=== PATIENT | female | born 1985 | race African-American/Black ===

== ENCOUNTER 2017-01-08 08:30 | Emergency (ER) | payer OTHER ==
[2017-01-08 08:35] VITALS: BP 127/82; PULSE 97; TEMP 98.1; BMI 36.0
[2017-01-08] MEDS ORDERED: MAG HYDROX/AL HYDROX/SIMETH 30 ML UNIT-DOSE CUP PO ONE (09:30)
[2017-01-08] MEDS ORDERED: LIDOCAINE VISCOUS 2% ORAL/TOP 20 ML UNIT-DOSE CUP MM ONE (09:31)
--- NOTE | 2017-01-08 09:35 | PDOC ---
History of Present Illness - General Chief Complaint: Cold Symptoms Stated Complaint: COUGH, UPPER TORSO DISCOMFORT Time Seen by Provider: 01/08/17 08:54 History Source: Patient Exam Limitations: No Limitations - History of Present Illness Initial Comments: 01/08/17 09:43 My chief complaint: Mid chest discomfort with eating or drinking for last 3 days History of present illness: Patient is a 31-year-old female with asthma and anemia here today complaining of mid chest discomfort only with eating or drinking for last 3 days. Patient denies any sore throat, nasal congestion, fever, cough, nausea, vomiting, or any shortness of breath or difficulty swallowing. She reports that she ate a hot cinnamon bun 3 days ago and that is when her symptoms started. Patient denies any chance of had a test 3 days ago and has not been sexually active since. 01/08/17 20:00 Timing/Duration: intermittent Severity: moderate Associated Symptoms: reports: chest pain (mid with eating or drinking ), other ( mid chest discomfort with eating, drinking ) Past History - Past Medical History Allergies/Adverse Reactions: Allergies Allergy/AdvReac Type Severity Reaction Status Date / Time shellfish derived Allergy Mild Itching Verified 01/08/17 08:34 Home Medications: Ambulatory Orders Mag Hydrox/Al Hydrox/Simeth [Maalox Advanced Suspension] 30 ml PO Q6H PRN #8 oz MDD 4 01/08/17 Omeprazole 20 mg PO DAILY #10 capsule. 01/08/17 Anemia: Yes Asthma: Yes Cancer: No Cardiac Disorders: No Diabetes: No HTN: No Seizures: No Thyroid Disease: No - Reproductive History (#): 4 Para: 3 Therapeutic (s) & number: No Spontaneous : 0 - Immunization History Immunization Up to Date: Yes - Psycho/Social/Smoking Cessation Hx Anxiety: No Suicidal Ideation: No Smoking History: Never smoked Have you smoked in the past 12 months: No Information on smoking cessation initiated: No Hx Alcohol Use: No Drug/Substance Use Hx: No Substance Use Type: None Hx Substance Use Treatment: No Review of Systems - Review of Systems Able to Perform ROS?: Yes Constitutional: No: Symptoms Reported HEENTM: No: Symptoms Reported Respiratory: No: Symptoms reported Cardiac (ROS): No: Symptoms Reported ABD/GI: No: Symptoms Reported : No: Symptoms Reported Musculoskeletal: No: Symptoms Reported Integumentary: No: Symptoms Reported Neurological: No: Symptoms reported *Physical Exam - Vital Signs Last Vital Signs Temp Pulse Resp BP Pulse Ox 98.1 F 97 H 18 127/82 100 01/08/17 08:32 01/08/17 08:32 01/08/17 08:32 01/08/17 08:32 01/08/17 08:32 - Physical Exam General Appearance: Yes: Appropriately Dressed HEENT: positive: Normal ENT Inspection Neck: negative: Lymphadenopathy (R), Lymphadenopathy (L) Respiratory/Chest: positive: Lungs Clear, Normal Breath Sounds. negative: Chest Tender, Respiratory Distress Cardiovascular: positive: Regular Rhythm, Regular Rate, S1, S2 Integumentary: positive: Normal Color Neurologic: positive: Alert, Normal Response, Responsive Heart Score/ECG Review - ECG Impressions Comment:: 01/08/17 10:[address] Clark Medical Decision Making - Medical Decision Making 01/08/17 09:45 Patient is a 31-year-old female with no significant medical problems here today complaining of mid chest discomfort only with eating or drinking for last 3 days. Patient denies any sore throat, nasal congestion, fever, cough, nausea, vomiting, or any shortness of breath or difficulty swallowing. She reports that she ate a hot cinnamon bun 3 days ago and that is when her symptoms started. Patient denies any chance of had a test 3 days ago and has not been sexually active since. Mid chest discomfort with eating or drinking since eating hot cinnamon bun esophagitis due to hot food Plan: Lidocaine viscous 2% 10 mL gargle now Maalox 30 ml now than every 6 hrs prn EKG done reviewed by Dr. Clark NSR omeprazole 20 mg daily 01/08/17 09:45 01/08/17 10:19 01/08/17 20:05 *DC/Admit/Observation/Transfer Diagnosis at time of Disposition: Esophagitis - Discharge Dispostion Disposition: HOME Condition at time of disposition: Stable - Prescriptions Prescriptions: Mag Hydrox/Al Hydrox/Simeth [Maalox Advanced Suspension] 30 ml PO Q6H PRN #8 oz MDD 4 PRN Reason: Dyspepsia Omeprazole 20 mg PO DAILY #10 capsule.dr - Patient Instructions Additional Instructions: Avoid Any very hot foods or liquids or extremely cold liquids or foods Return to emergency room if symptoms worsen follow-up with your primary care provider within the next few days Patient voiced understanding of discharge instructions and all questions were answered
[2017-01-08] MEDS ORDERED: MAG HYDROX/AL HYDROX/SIMETH 30 ML UNIT-DOSE CUP ONE (09:48)
--- NOTE | 2017-01-08 21:02 | EKG ---
Test Reason : Blood Pressure : / mmHG Vent. Rate : 091 BPM Atrial Rate : 091 BPM P-R Int : 150 ms QRS Dur : 072 ms QT Int : 360 ms P-R-T Axes : 054 044 033 degrees QTc Int : 442 ms NORMAL SINUS RHYTHM NORMAL ECG NO PREVIOUS ECGS AVAILABLE Confirmed by ARNULFO SINGH MD ([id number]) on 01/08/2017 9:02:38 PM Referred By: Confirmed By:ARNULFO SINGH MD
== END 2017-01-08 10:28 | disposition home or self-care (01) ==
LOC: JERFT 08:30
DX: K20.8 Other esophagitis (principal); J45.909 Unspecified asthma, uncomplicated; D64.9 Anemia, unspecified
CPT/HCPCS: 93005; 93010; 99281-25

== ENCOUNTER 2017-02-23 19:42 | Emergency (ER) | payer OTHER ==
[2017-02-23 19:47] VITALS: BMI 36.0
[2017-02-23 22:43] VITALS: BP 113/68; PULSE 79; TEMP 98.3
== END 2017-02-24 00:31 | disposition left against medical advice (07) ==
LOC: JER 19:42
DX: Z53.21 Procedure and treatment not carried out due to patient leaving prior to being seen by health care provider (principal)
CPT/HCPCS: 99281-25

== ENCOUNTER 2017-02-24 08:54 | Emergency (ER) | payer OTHER ==
[2017-02-24 08:59] VITALS: BP 113/56; PULSE 97; TEMP 98.7; BMI 37.2
--- NOTE | 2017-02-24 09:48 | PDOC ---
History of Present Illness - General History Source: Patient - History of Present Illness Timing/Duration: reports: other <Miriam LillyMeghanaRoz - Last Filed: 02/24/17 11:38> <Glen Segundo - Last Filed: 03/01/17 18:40> - General Chief Complaint: Pain, Acute Stated Complaint: CRAMPING () Time Seen by Provider: 02/24/17 09:21 Past History - Past Medical History Anemia: Yes Asthma: Yes Cancer: No Cardiac Disorders: No Diabetes: No HTN: No Seizures: No Thyroid Disease: No - Reproductive History (#): 4 Para: 3 Therapeutic (s) & number: No Spontaneous : 0 - Immunization History Immunization Up to Date: Yes - Psycho/Social/Smoking Cessation Hx Anxiety: No Suicidal Ideation: No Smoking History: Never smoked Have you smoked in the past 12 months: No Hx Alcohol Use: No Drug/Substance Use Hx: No Substance Use Type: None Hx Substance Use Treatment: No <MemphisMiriamLibia - Last Filed: 02/24/17 11:38> <Glen Segundo - Last Filed: 03/01/17 18:40> - Past Medical History Allergies/Adverse Reactions: Allergies Allergy/AdvReac Type Severity Reaction Status Date / Time shellfish derived Allergy Mild Itching Verified 02/24/17 08:59 Home Medications: Ambulatory Orders Nitrofurantoin Monohyd/M-Cryst [Macrobid -] 100 mg PO BID #14 capsule 02/24/17 Review of Systems - Review of Systems Constitutional: No: Chills, Fever ABD/GI: Yes: Nausea, Vomiting, Abdominal cramping : No: Dysuria Musculoskeletal: No: Back Pain <Miriam LillyMeghanaRoz - Last Filed: 02/24/17 11:38> *Physical Exam - Vital Signs Last Vital Signs Temp Pulse Resp BP Pulse Ox 98.7 F 97 H 16 113/56 96 02/24/17 08:56 02/24/17 08:56 02/24/17 08:56 02/24/17 08:56 02/24/17 08:56 - Physical Exam General Appearance: Yes: Appropriately Dressed. No: Apparent Distress HEENT: positive: Normal Voice Neck: positive: Supple Respiratory/Chest: negative: Respiratory Distress Female Pelvic Exam: positive: normal external exam, cervical os closed, discharge (mod amount of milky white discharge), vaginal bleeding. negative: normal adnexa Gastrointestinal/Abdominal: positive: Tender (to mid suprapubic, NT over appy), Soft Musculoskeletal: negative: CVA Tenderness Integumentary: positive: Dry, Warm Neurologic: positive: Fully Oriented, Alert, Normal Mood/Affect <MaxxMiriamLibia - Last Filed: 02/24/17 11:38> - Vital Signs Last Vital Signs Temp Pulse Resp BP Pulse Ox 98.7 F 97 H 16 113/56 96 02/24/17 08:56 02/24/17 08:56 02/24/17 08:56 02/24/17 08:56 02/24/17 08:56 <Glen Segundo - Last Filed: 03/01/17 18:40> Heart Score/ECG Review - History History: Slightly suspicious <MaxxAdithya - Last Filed: 02/24/17 11:38> ED Treatment Course - RADIOLOGY Radiology Studies Ordered: Category Date Time Status <14WKS US [US] Stat Ultrasound 02/24/17 09:21 Ordered <MaxxAdithya - Last Filed: 02/24/17 11:38> Medical Decision Making - Medical Decision Making 02/24/17 09:43 (s/p elec ab and 1 spon ab), currently on OCPs w/ subsequent irregular menses, had +home preg test 1 week ago but did not believe test so continued to take her control but 2 days ago began having vaginal bleeding w/ clots and lower abd cramping w/ n/v that feels very different from her usual menses so decided to come to ED yesterday but left because the wait to be seen was too long per pt. No back pain, dysuria, f/c. See exam 1st trimester bleed w/ abd pain R/o ectopic vs spon AB vs vag bleed in normal preg On OCPs w/ irreg menses Stable w/ +ttp to mid suprapubic area and unremarkable pelvic -beta -T&S -pelvic US 02/24/17 09:59 02/24/17 10:01 02/24/17 11:38 +IUP @5 weeks on US, no activity documented. Beta > 4K. RH +, +uti on labs , ucx pending. Will tx. Pt to f/u with OB and stop taking OCP. Discharged in stable condition 02/24/17 11:41 02/24/17 11:41 <Adithya Lilly - Last Filed: 02/24/17 11:38> - Medical Decision Making 03/01/17 18:40 The patient was seen and evaluated in conjunction with BETZAIDA Lilly under my direct supervision, ancillary studies were reviewed. I agree with the plan as outlined by BETZAIDA Lilly . <Glen Segundo - Last Filed: 03/01/17 18:40> *DC/Admit/Observation/Transfer <Adithya Lilly - Last Filed: 02/24/17 11:38> <Glen Segundo - Last Filed: 03/01/17 18:40> Diagnosis at time of Disposition: Threatened Urinary tract infection Qualifiers: Urinary tract infection type: acute cystitis Hematuria presence: without hematuria Qualified Code(s): N30.00 - Acute cystitis without hematuria - Discharge Dispostion Disposition: HOME Condition at time of disposition: Good - Prescriptions Prescriptions: Nitrofurantoin Monohyd/M-Cryst [Macrobid -] 100 mg PO BID #14 capsule - Referrals Referrals: Evangelist Calzada [Primary Care Provider] - - Patient Instructions Printed Discharge Instructions: DI for Threatened , Urinary Tract Infection Additional Instructions: Take antibiotics as directed . Please stop taking your control and follow up with your OB
[2017-02-24 09:56] LABS: URINE APPEARANCE SLCLOUDY; URINE BILIRUBIN NEGATIVE (NEGATIVE); URINE BLOOD NEGATIVE (NEGATIVE); URINE COLOR DKYELLOW; URINE GLUCOSE (UA) NEGATIVE (NEGATIVE); URINE KETONE 1+ (NEGATIVE); URINE NITRITE POSITIVE (NEGATIVE); URINE UROBILINOGEN NEGATIVE E.U./dl (0.2-1.0)
[2017-02-24 11:08] LABS: URINE LEUK ESTERASE TRACE (NEGATIVE); URINE PROTEIN 1+ (NEGATIVE)
[2017-02-24 11:19] LABS: URINE BACTERIA MANY /hpf (NONE SEEN); URINE MUCUS MANY; URINE RBC 1 /hpf (0-3); URINE WBC 7 /hpf (3-5)
== END 2017-02-24 12:05 | disposition home or self-care (01) ==
LOC: JER 08:54
DX: Z3A.01 Less than 8 weeks gestation of pregnancy (principal); O23.11 Infections of bladder in pregnancy, first trimester; N30.00 Acute cystitis without hematuria
CPT/HCPCS: 36415; 76801-TC; 81003; 81015; 84702; 84703; 86850; 86900; 86901; 99281-25

== ENCOUNTER → 2017-04-06 | Emergency (ER) | payer OTHER ==
[~2017-04-06] MED LIST: CEFTRIAXONE 50 ML ONE; CEPHALEXIN MONOHYDRATE 250 MG CAPSULE (FP) ONE; ONDANSETRON 4 MG/2 ML VIAL IVPUSH ONE; ONDANSETRON 4 MG/2 ML VIAL ONE; SODIUM CHLORIDE 1,000 ML IV STA
[2017-04-06 17:45] VITALS: BP 127/61; PULSE 91; TEMP 98.5; BMI 38.9
[2017-04-06 20:07] LABS: BASOPHIL 0.7 % (0-2.0); EOSINOPHIL 9.8 % (0-4.5); MCH 27.2 pg (25.7-33.7); MEAN PLT VOLUME 8.7 fl (7.5-11.1); NEUTROPHILS 51.3 % (42.8-82.8); PLATELET COUNT 279 K/MM3 (134-434); RDW 15.7 % (11.6-15.6); WHITE BLOOD COUNT 5.9 K/mm3 (4.0-10.0)
[2017-04-06 20:17] LABS: URINE APPEARANCE SLCLOUDY; URINE BILIRUBIN NEGATIVE (NEGATIVE); URINE BLOOD NEGATIVE (NEGATIVE); URINE COLOR YELLOW; URINE GLUCOSE (UA) NEGATIVE (NEGATIVE); URINE KETONE TRACE (NEGATIVE); URINE NITRITE POSITIVE (NEGATIVE); URINE UROBILINOGEN NEGATIVE E.U./dl (0.2-1.0)
[2017-04-06 20:28] LABS: URINE LEUK ESTERASE 3+ (NEGATIVE); URINE PROTEIN 1+ (NEGATIVE)
[2017-04-06 20:30] LABS: URINE BACTERIA FEW /hpf (NONE SEEN); URINE HYALINE CAST 2 /lpf; URINE MUCUS MANY; URINE RBC 4 /hpf (0-3); URINE WBC 50 /hpf (3-5)
[2017-04-06 20:50] LABS: ALBUMIN 3.5 g/dl (3.4-5.0); ANION GAP 11 (8-16); CALCIUM 8.4 mg/dL (8.5-10.1); CO2 22 mmol/L (21-32); COCKROFT - GAULT 163.455; CREATININE 0.8 mg/dL (0.55-1.02); GLUCOSE,RANDOM 117 mg/dL (74-106); SGOT/AST 11 U/L (15-37); SGPT/ALT 15 U/L (12-78)
[2017-04-06 20:52] LABS: ALK PHOS 43 U/L (45-117); BILIRUBIN,TOTAL 0.2 mg/dL (0.2-1.0); TOT PROT 6.5 g/dl (6.4-8.2)
--- NOTE | 2017-04-06 20:59 | PDOC ---
History of Present Illness <Shiva Subramanian - Last Filed: 04/06/17 20:59> - General History Source: Patient Exam Limitations: No Limitations - History of Present Illness Initial Comments: 04/06/17 21:09 The patient is a 31 year old female, with a significant past medical history of Asthma and Anemia, who presents to the emergency department with nausea, vomiting (nonbloody, nonbilious), abdominal pain and diarrhea for the past 2-3 days. She reports her LMP was 2 months ago and her last test was negative. She presents to the ED for further evaluation. She denies chest pain, headache or dizziness. She denies fever, chills, nausea, vomit, diarrhea or constipation. She denies dysuria, frequency, urgency or hematuria. Allergies: shellfish Surgical Hx: None Social Hx: None PCP: None <Funmilyao Canela - Last Filed: 04/06/17 21:10> - General Chief Complaint: Vomiting/Diarrhea Stated Complaint: VOMITING/DIARRHEA Time Seen by Provider: 04/06/17 18:52 Past History - Past Medical History Anemia: Yes Asthma: Yes Cancer: No Cardiac Disorders: No Diabetes: No HTN: No Seizures: No Thyroid Disease: No - Reproductive History (#): 3 Para: 3 Therapeutic (s) & number: No Spontaneous : 0 - Immunization History Immunization Up to Date: Yes - Psycho/Social/Smoking Cessation Hx Anxiety: No Suicidal Ideation: No Smoking History: Never smoked Have you smoked in the past 12 months: No Hx Alcohol Use: No Drug/Substance Use Hx: No Substance Use Type: None Hx Substance Use Treatment: No <Shiva Subramanian - Last Filed: 04/06/17 20:59> <Funmilayo Canela - Last Filed: 04/06/17 21:10> - Past Medical History Allergies/Adverse Reactions: Allergies Allergy/AdvReac Type Severity Reaction Status Date / Time shellfish derived Allergy Mild Itching Verified 04/06/17 17:45 Home Medications: Ambulatory Orders NK [No Known Home Medication] 04/06/17 Review of Systems - Review of Systems Able to Perform ROS?: Yes Comments:: 04/06/17 21:09 GENERAL/CONSTITUTIONAL: No fever or chills. No weakness. HEAD, EYES, EARS, NOSE AND THROAT: No change in vision. No ear pain or discharge. No sore throat. CARDIOVASCULAR: No chest pain or shortness of breath. RESPIRATORY: No cough, wheezing, or hemoptysis. GASTROINTESTINAL: + nausea, vomiting, diarrhea abdominal pain. No constipation. GENITOURINARY: No dysuria, frequency, or change in urination. MUSCULOSKELETAL: No joint or muscle swelling or pain. No neck or back pain. SKIN: No rash NEUROLOGIC: No headache, vertigo, loss of consciousness, or change in strength/ sensation. ENDOCRINE: No increased thirst. No abnormal weight change. HEMATOLOGIC/LYMPHATIC: No anemia, easy bleeding, or history of blood clots. ALLERGIC/IMMUNOLOGIC: No hives or skin allergy. <Funmilayo Canela - Last Filed: 04/06/17 21:10> *Physical Exam - Vital Signs Last Vital Signs Temp Pulse Resp BP Pulse Ox 98.5 F 91 H 20 127/61 100 04/06/17 17:42 04/06/17 17:42 04/06/17 17:42 04/06/17 17:42 04/06/17 17:42 <Shiva Subramanian - Last Filed: 04/06/17 20:59> - Vital Signs Last Vital Signs Temp Pulse Resp BP Pulse Ox 98.5 F 91 H 20 127/61 100 04/06/17 17:42 04/06/17 17:42 04/06/17 17:42 04/06/17 17:42 04/06/17 17:42 - Physical Exam Comments: 04/06/17 21:10 GENERAL: Awake, alert, and fully oriented, in no acute distress HEAD: No signs of trauma EYES: PERRLA, EOMI, sclera anicteric, conjunctiva clear ENT: Auricles normal inspection, hearing grossly normal, nares patent, oropharynx clear without exudates. Moist mucosa NECK: Normal ROM, supple, no lymphadenopathy, JVD, or masses LUNGS: Breath sounds equal, clear to auscultation bilaterally. No wheezes, and no crackles HEART: Regular rate and rhythm, normal S1 and S2, no murmurs, rubs or gallops ABDOMEN: Soft, nontender, normoactive bowel sounds. No guarding, no rebound. No masses EXTREMITIES: Normal range of motion, no edema. No clubbing or cyanosis. No cords, erythema, or tenderness NEUROLOGICAL: Cranial nerves II through XII grossly intact. Normal speech, normal gait SKIN: Warm, Dry, normal turgor, no rashes or lesions noted. <Funmilayo Canela - Last Filed: 04/06/17 21:10> ED Treatment Course - LABORATORY CBC & Chemistry Diagram: 04/06/17 19:38 04/06/17 19:38 - ADDITIONAL ORDERS Additional order review: Laboratory Results 04/06/17 04/06/17 04/06/17 19:38 19:38 19:38 INR 1.00 Sodium 142 Potassium 4.1 Chloride 109 H Carbon Dioxide 22 Anion Gap 11 BUN 9 D Creatinine 0.8 Creat Clearance w eGFR > 60 Random Glucose 117 H D Calcium 8.4 L Total Bilirubin 0.2 D AST 11 L ALT 15 Alkaline Phosphatase 43 L Total Protein 6.5 Albumin 3.5 Lipase 180 Serum , Qual Positive Urine Color Yellow Urine Appearance Slcloudy Urine pH 5.0 Urine Protein 1+ H Urine Glucose (UA) Negative Urine Ketones Trace H Urine Blood Negative Urine Nitrite Positive Urine Bilirubin Negative Urine Urobilinogen Negative Ur Leukocyte Esterase 3+ H D 04/06/17 19:38 RBC 4.04 MCV 85.0 MCHC 32.0 RDW 15.7 H D MPV 8.7 Neutrophils % 51.3 Lymphocytes % 32.3 Monocytes % 5.9 Eosinophils % 9.8 H D Basophils % 0.7 - RADIOLOGY Radiology Studies Ordered: Category Date Time Status TRANSVAGINAL US PREG [US] Stat Ultrasound 04/06/17 20:41 Ordered - Medications Given in the ED: ED Medications Discontinued Medications Generic Name Dose Route Start Last Admin Trade Name Freq PRN Reason Stop Dose Admin Sodium Chloride 1,000 mls @ 1,000 mls/hr 04/06/17 18:56 04/06/17 19:36 Normal Saline - IV 04/06/17 19:55 1,000 mls/hr ASDIR STA Administration Ondansetron HCl 4 mg 04/06/17 18:56 04/06/17 19:36 Zofran Injection IVPUSH 04/06/17 18:57 4 mg ONCE ONE Administration <Shiva Subramanian - Last Filed: 04/06/17 20:59> - LABORATORY CBC & Chemistry Diagram: 04/06/17 19:38 04/06/17 19:38 - ADDITIONAL ORDERS Additional order review: Laboratory Results 04/06/17 04/06/17 04/06/17 19:38 19:38 19:38 INR 1.00 Sodium 142 Potassium 4.1 Chloride 109 H Carbon Dioxide 22 Anion Gap 11 BUN 9 D Creatinine 0.8 Creat Clearance w eGFR > 60 Random Glucose 117 H D Calcium 8.4 L Total Bilirubin 0.2 D AST 11 L ALT 15 Alkaline Phosphatase 43 L Total Protein 6.5 Albumin 3.5 Lipase 180 Serum , Qual Positive Urine Color Yellow Urine Appearance Slcloudy Urine pH 5.0 Urine Protein 1+ H Urine Glucose (UA) Negative Urine Ketones Trace H Urine Blood Negative Urine Nitrite Positive Urine Bilirubin Negative Urine Urobilinogen Negative Ur Leukocyte Esterase 3+ H D 04/06/17 19:38 RBC 4.04 MCV 85.0 MCHC 32.0 RDW 15.7 H D MPV 8.7 Neutrophils % 51.3 Lymphocytes % 32.3 Monocytes % 5.9 Eosinophils % 9.8 H D Basophils % 0.7 - Medications Given in the ED: ED Medications Discontinued Medications Generic Name Dose Route Start Last Admin Trade Name Davieq PRN Reason Stop Dose Admin Sodium Chloride 1,000 mls @ 1,000 mls/hr 04/06/17 18:56 04/06/17 19:36 Normal Saline - IV 04/06/17 19:55 1,000 mls/hr ASDIR STA Administration Ondansetron HCl 4 mg 04/06/17 18:56 04/06/17 19:36 Zofran Injection IVPUSH 04/06/17 18:57 4 mg ONCE ONE Administration <Funmilayo Canela - Last Filed: 04/06/17 21:10> *DC/Admit/Observation/Transfer - Attestations Physician Attestion: 04/06/17 20:59 I, Dr. Shiva Subramanian, attest that this document has been prepared under my direction and personally reviewed by me in its entirety. I further attest, that it accurately reflects all work, treatment, procedures and medical decision -making performed by me. <Shiva Subramanian - Last Filed: 04/06/17 20:59> - Attestations Scribe Attestion: 04/06/17 21:10 Documentation prepared by Funmilayo Canela, acting as medical consultant for Shiva Subramanian MD/. <Funmilayo Canela - Last Filed: 04/06/17 21:10> - Referrals Referrals: Evangelist Calzada [Primary Care Provider] -
== END | disposition left against medical advice (07) ==
LOC: JER 17:29
PROC: 3E033GC Introduction of Other Therapeutic Substance into Peripheral Vein, Percutaneous Approach (ICD-10-PCS; principal; 2017-04-06)
DX: O26.891 Other specified pregnancy related conditions, first trimester (principal); R10.84 Generalized abdominal pain; R11.2 Nausea with vomiting, unspecified; Z3A.00 Weeks of gestation of pregnancy not specified
CPT/HCPCS: 36415; 80053; 81003; 81015; 83690; 84702; 84703; 85025; 85610; 99282-25

== ENCOUNTER 2017-04-07 09:43 | Emergency (ER) | payer OTHER ==
[2017-04-07 09:58] VITALS: TEMP 98; BMI 38.9
--- NOTE | 2017-04-07 10:40 | PDOC ---
History of Present Illness - General Chief Complaint: Vaginal Bleeding Stated Complaint: VAGINAL BLEEDING (7 WKS ) Time Seen by Provider: 04/07/17 10:14 History Source: Patient Exam Limitations: No Limitations - History of Present Illness Travel History: No Initial Comments: 04/07/17 10:38 31-year-old female presents with abdominal pain along with vaginal spotting this morning upon wiping. Patient states was here yesterday for nausea vomiting abdominal pain but left before receiving her results since she has been a per daughter. 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 Patient denies fever, chills, nausea, dysuria, or hematuria. Timing/Duration: reports: resolved prior to arrival Quality: reports: mild, cramping Abdominal Pain Onset Location: reports: periumbilical Pain Radiation: reports: no radiation Activities at Onset: reports: eating Aggravating Factors: improves with: None Alleviating Factors: improves with: None Past History - Past Medical History Allergies/Adverse Reactions: Allergies Allergy/AdvReac Type Severity Reaction Status Date / Time shellfish derived Allergy Mild Itching Verified 04/07/17 09:58 Home Medications: Ambulatory Orders NK [No Known Home Medication] 04/06/17 Anemia: Yes Asthma: Yes Cancer: No Cardiac Disorders: No Diabetes: No HTN: No Seizures: No Thyroid Disease: No - Reproductive History (#): 3 Para: 3 Therapeutic (s) & number: No Spontaneous : 0 - Immunization History Immunization Up to Date: Yes - Psycho/Social/Smoking Cessation Hx Anxiety: No Suicidal Ideation: No Smoking History: Never smoked Have you smoked in the past 12 months: No Information on smoking cessation initiated: No Hx Alcohol Use: No Drug/Substance Use Hx: No Substance Use Type: None Hx Substance Use Treatment: No Patient Lives Alone: No Review of Systems - Review of Systems Able to Perform ROS?: Yes Constitutional: No: Symptoms Reported HEENTM: No: Symptoms Reported Respiratory: No: Symptoms reported Cardiac (ROS): No: Symptoms Reported ABD/GI: Yes: Abdominal cramping, Other (vag spotting with voiding this am) : No: Symptoms Reported Integumentary: No: Symptoms Reported Neurological: No: Symptoms reported Endocrine: No: Symptoms Reported Hematologic/Lymphatic: No: Symptoms Reported *Physical Exam - Vital Signs Last Vital Signs Temp Pulse Resp BP Pulse Ox 98 F 77 18 119/64 99 04/07/17 09:55 04/07/17 09:55 04/07/17 09:55 04/07/17 09:55 04/07/17 09:55 - Physical Exam General Appearance: Yes: Nourished, Appropriately Dressed. No: Apparent Distress Neck: positive: Normal Thyroid Respiratory/Chest: positive: Lungs Clear, Normal Breath Sounds. negative: Respiratory Distress, Accessory Muscle Use Cardiovascular: positive: Regular Rhythm, Regular Rate. negative: Murmur Female Pelvic Exam: positive: normal external exam. negative: discharge, vaginal bleeding Gastrointestinal/Abdominal: positive: Normal Bowel Sounds, Soft, Tenderness ( mils periumbilical). negative: Distended, Mass Musculoskeletal: negative: CVA Tenderness Extremity: positive: Normal Capillary Refill Integumentary: positive: Normal Color, Warm, Moist Neurologic: positive: Normal Mood/Affect, Motor Strength 5/5 (ambulatory) ED Treatment Course - RADIOLOGY Radiology Studies Ordered: Category Date Time Status <14WKS US [US] Stat Ultrasound 04/07/17 10:34 Ordered Medical Decision Making - Medical Decision Making 04/07/17 10:43 Patient was seen here yesterday for nausea vomiting abdominal pain. Patient also had diarrhea at that time. 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 Her urinalysis shows urinary tract infection. No urine culture was sent. Patient also did not receive an ultrasound. Patient will be ordered for urine culture, type and screen and transvaginal ultrasound. Patient also will be given antibiotics 04/07/17 12:32 Ultrasound shows thickening of the endometrial stripe measuring 1.5 cm with a slightly heterogenous echotexture. There is no intrauterine gestation sac identified. The right ovarian simple cyst corpus luteum cyst is measuring 3 x 3.2 cm. This is small amount of free fluid in the cul-de-sac. Patient will have to return here or to her [facility] in 2 days for repeat beta hCG. Patient will be discharged home with Keflex 04/07/17 12:33 Laboratory Tests 04/07/17 10:38 Blood Type B POSITIVE *DC/Admit/Observation/Transfer Diagnosis at time of Disposition: Threatened in early Urinary tract infection Qualifiers: Urinary tract infection type: acute cystitis Hematuria presence: without hematuria Qualified Code(s): N30.00 - Acute cystitis without hematuria - Discharge Dispostion Disposition: HOME Condition at time of disposition: Good - Referrals Referrals: Evangelist Calzada [Primary Care Provider] - - Patient Instructions Printed Discharge Instructions: DI for Urinary Tract Infection (UTI) Additional Instructions: Please take antibiotics as prescribed for the next 7 days twice a day starting tonight. Please follow-up either with your [facility] in 2 days or follow up here for repeat blood work or return sooner if symptoms worsen.
[2017-04-07] MEDS ORDERED: CEPHALEXIN MONOHYDRATE 500 MG CAPSULE (UD) PO ONE (10:44)
--- NOTE | 2017-04-07 11:14 | PDOC ---
*Physical Exam - Vital Signs Last Vital Signs Temp Pulse Resp BP Pulse Ox 98 F 77 18 119/64 99 04/07/17 09:55 04/07/17 09:55 04/07/17 09:55 04/07/17 09:55 04/07/17 09:55 Medical Decision Making - Medical Decision Making 04/07/17 11:07 Pt seen by the Advanced Practice Provider under my direct supervision Ancillary studies reviewed I agree with plan as outlined by the Advanced Practice Provider MANN Pollard *DC/Admit/Observation/Transfer Diagnosis at time of Disposition: Urinary tract infection, Threatened in early - Discharge Dispostion Disposition: HOME Condition at time of disposition: Good - Prescriptions Prescriptions: Cephalexin [Keflex] 500 mg PO BID #12 capsule - Referrals Referrals: Evangelist Calzada [Primary Care Provider] - - Patient Instructions Printed Discharge Instructions: DI for Urinary Tract Infection (UTI) Additional Instructions: Please take antibiotics as prescribed for the next 7 days twice a day starting tonight. Please follow-up either with your [facility] in 2 days or follow up here for repeat blood work or return sooner if symptoms worsen.
[2017-04-07 12:40] VITALS: BP 126/70; PULSE 70
== END 2017-04-07 12:56 | disposition home or self-care (01) ==
LOC: JER 09:43
DX: O26.891 Other specified pregnancy related conditions, first trimester (principal); Z3A.01 Less than 8 weeks gestation of pregnancy; O20.0 Threatened abortion; N30.00 Acute cystitis without hematuria
CPT/HCPCS: 76801-TC; 86850; 86900; 86901; 87086; 87186; 99282-25

== ENCOUNTER 2017-04-14 22:25 | Emergency (ER) | payer OTHER ==
[2017-04-14 22:38] VITALS: BP 100/51; PULSE 81; TEMP 97.9; BMI 39.0
--- NOTE | 2017-04-14 23:29 | PDOC ---
History of Present Illness - General Chief Complaint: Vaginal Sxs Stated Complaint: URINARY PROBLEM Time Seen by Provider: 04/14/17 23:34 History Source: Patient - History of Present Illness Initial Comments: 04/14/17 23:30 31 year old female with vaginal irritation and itchy since this am. patient is 7 week denies vaginal bleeding abdominal pain, NVD fever at this time. Past History - Past Medical History Allergies/Adverse Reactions: Allergies Allergy/AdvReac Type Severity Reaction Status Date / Time shellfish derived Allergy Mild Itching Verified 04/07/17 09:58 Home Medications: Ambulatory Orders Cephalexin [Keflex] 500 mg PO BID #12 capsule 04/07/17 Anemia: Yes Asthma: Yes Cancer: No Cardiac Disorders: No Diabetes: No HTN: No Seizures: No Thyroid Disease: No - Reproductive History (#): 3 Para: 3 Therapeutic (s) & number: No Spontaneous : 0 - Immunization History Immunization Up to Date: Yes - Psycho/Social/Smoking Cessation Hx Anxiety: No Suicidal Ideation: No Smoking History: Never smoked Have you smoked in the past 12 months: No Hx Alcohol Use: No Drug/Substance Use Hx: No Substance Use Type: None Hx Substance Use Treatment: No Review of Systems - Review of Systems Able to Perform ROS?: Yes Is the patient limited Chadian proficient: No : Yes: Other (vaginal irritation). No: Symptoms Reported, See HPI, Burning, Dysuria, Discharge, Frequency, Flank Pain, Hematuria, Incontinence, Pain, Urgency, Testicular Mass, Testicular Swelling, Lesions, Testicular Pain *Physical Exam - Vital Signs Last Vital Signs Temp Pulse Resp BP Pulse Ox 97.9 F 81 18 100/51 99 04/14/17 22:37 04/14/17 22:37 04/14/17 22:37 04/14/17 22:37 04/14/17 22:37 - Physical Exam General Appearance: Yes: Appropriately Dressed Female Pelvic Exam: positive: other (labial erythema) Gastrointestinal/Abdominal: positive: Normal Bowel Sounds, Soft Musculoskeletal: positive: Normal Inspection Extremity: positive: Normal Capillary Refill, Normal Inspection, Normal Range of Motion Neurologic: positive: Fully Oriented, Alert, Normal Mood/Affect Progress Note - Progress Note Progress Note: labial ca *DC/Admit/Observation/Transfer Diagnosis at time of Disposition: Fracnine vaginitis, Cystitis - Discharge Dispostion Disposition: HOME - Referrals Referrals: Evangelist Calzada [Primary Care Provider] - - Patient Instructions Printed Discharge Instructions: Acute Cystitis Additional Instructions: continue taking cephalexin as prescribed. follow up with your doctor as soon as possible.
[2017-04-15 00:06] LABS: URINE APPEARANCE SLCLOUDY; URINE BILIRUBIN NEGATIVE (NEGATIVE); URINE BLOOD NEGATIVE (NEGATIVE); URINE COLOR YELLOW; URINE GLUCOSE (UA) NEGATIVE (NEGATIVE); URINE KETONE TRACE (NEGATIVE); URINE NITRITE POSITIVE (NEGATIVE); URINE UROBILINOGEN 2.0 E.U/dl E.U./dl (0.2-1.0)
[2017-04-15 00:07] LABS: URINE LEUK ESTERASE 3+ (NEGATIVE); URINE PROTEIN 1+ (NEGATIVE)
[2017-04-15 00:08] LABS: URINE BACTERIA MANY /hpf (NONE SEEN); URINE HYALINE CAST 3 /lpf; URINE MUCUS MANY; URINE RBC 13 /hpf (0-3); URINE WBC 40 /hpf (3-5)
[2017-04-15] MEDS ORDERED: CEFTRIAXONE 1 GM in DEXTROSE 5%-WATER - 50 ML IVPB ONE (00:42)
== END 2017-04-15 01:58 | disposition home or self-care (01) ==
LOC: JER 22:25
DX: O98.811 Other maternal infectious and parasitic diseases complicating pregnancy, first trimester (principal); O23.11 Infections of bladder in pregnancy, first trimester; B37.41 Candidal cystitis and urethritis; Z3A.01 Less than 8 weeks gestation of pregnancy
CPT/HCPCS: 36415; 81003; 81015; 84703; 87086; 87186; 87491; 87591; 99283-25

== ENCOUNTER 2017-05-04 01:50 | Emergency (ER) | payer OTHER ==
[2017-05-04] MEDS ORDERED: SODIUM CHLORIDE 1,000 ML IV STA ×2 (02:05→05:07)
--- NOTE | 2017-05-04 02:05 | PDOC ---
History of Present Illness - General History Source: Patient Exam Limitations: No Limitations - History of Present Illness Initial Comments: 05/04/17 02:10 The patient is a 31 year old female (8 weeks ) with significant past medical history of asthma and anemia who presents to the ED for 2 days of lower abdominal/pelvic pain. Patient describes her pain as crampy in nature with associated nausea and vomiting. She denies diarrhea. Denies vaginal bleeding or discharge. States since her , she has been seen by her OB/ ANIMAL PATHOLOGY TEACHER twice. Admits that she has not taken her vitamins. The patient denies fever, chills, cough, SOB, chest pain, and palpitations. The patient denies dysuria, hematuria, urgency, and frequency. Allergies: NKDA Social History: No alcohol, tobacco, or drug use reported. Past Surgical History: None reported PCP: Dr. Evangelist Calzada <Tiera Huertas - Last Filed: 05/04/17 02:10> <Nichelle Garcia - Last Filed: 05/04/17 09:56> - General History Source: Patient <Jeanmarie Harper - Last Filed: 05/04/17 19:23> - General Chief Complaint: Pain Stated Complaint: 8 WKS PREG ABD PAIN Time Seen by Provider: 05/04/17 02:01 Past History <Tiera Huertas - Last Filed: 05/04/17 02:10> <Nichelle Garcia - Last Filed: 05/04/17 09:56> - Past Medical History Anemia: Yes Asthma: Yes Cancer: No Cardiac Disorders: No Diabetes: No HTN: No Seizures: No Thyroid Disease: No - Reproductive History (#): 3 Para: 3 Therapeutic (s) & number: No Spontaneous : 0 - Immunization History Immunization Up to Date: Yes - Psycho/Social/Smoking Cessation Hx Anxiety: No Suicidal Ideation: No Smoking History: Never smoked Have you smoked in the past 12 months: No Information on smoking cessation initiated: No Hx Alcohol Use: No Drug/Substance Use Hx: No Substance Use Type: None Hx Substance Use Treatment: No <Jeanmarie Harper - Last Filed: 05/04/17 19:23> - Past Medical History Allergies/Adverse Reactions: Allergies Allergy/AdvReac Type Severity Reaction Status Date / Time shellfish derived Allergy Mild Itching Verified 05/04/17 01:58 Home Medications: Ambulatory Orders NK [No Known Home Medication] 05/04/17 Review of Systems - Review of Systems Able to Perform ROS?: Yes Comments:: 05/04/17 02:10 CONSTITUTIONAL: Absent: fever, no chills, no fatigue EYES: Absent: visual changes ENT: Absent: ear pain, no sore throat CARDIOVASCULAR: Absent: chest pain, no palpitations RESPIRATORY: Absent: cough, no SOB GI: +lower abdominal/pelvic pain, nausea, vomiting Absent: no constipation, no diarrhea GENITOURINARY: Absent: dysuria, no frequency, no hematuria MUSCULOSKELETAL: Absent: back pain, no arthralgia, no myalgia SKIN: Absent: rash NEURO: Absent: headache <Tiera Huertas - Last Filed: 05/04/17 02:10> *Physical Exam - Vital Signs Last Vital Signs Temp Pulse Resp BP Pulse Ox 97.2 F L 86 20 102/70 99 05/04/17 01:58 05/04/17 01:58 05/04/17 01:58 05/04/17 01:58 05/04/17 01:58 - Physical Exam Comments: 05/04/17 02:10 GENERAL: Well-appearing, well-nourished. No apparent distress. HEENT: Normocephalic, atraumatic. PERRL, EOM intact. CARDIOVASCULAR: Normal S1, S2. Regular rate and rhythm. PULMONARY: Clear to auscultation bilaterally. ABDOMEN: Soft, non-distended, lower abdominal tenderness. No rebound or guarding. EXTREMITIES: Normal ROM in all four extremities. No gross deformities. SKIN: Warm, dry. No rash NEUROLOGICAL: No focal neurological deficits. <Tiera Huertas - Last Filed: 05/04/17 02:10> - Vital Signs Last Vital Signs Temp Pulse Resp BP Pulse Ox 98.8 F 78 16 110/70 99 05/04/17 06:05 05/04/17 06:05 05/04/17 06:05 05/04/17 06:05 05/04/17 01:58 <Nichelle Garcia - Last Filed: 05/04/17 09:56> - Vital Signs Last Vital Signs Temp Pulse Resp BP Pulse Ox 97.2 F L 86 20 102/70 99 05/04/17 01:58 05/04/17 01:58 05/04/17 01:58 05/04/17 01:58 05/04/17 01:58 <Jeanmarie Harper - Last Filed: 05/04/17 19:23> ED Treatment Course - LABORATORY CBC & Chemistry Diagram: 05/04/17 03:13 05/04/17 03:50 - ADDITIONAL ORDERS Additional order review: Laboratory Results 05/04/17 05/04/17 05/04/17 03:50 03:50 03:13 Sodium 141 Potassium 4.3 Chloride 110 H Carbon Dioxide 25 Anion Gap 6 L BUN 8 Creatinine 0.8 Creat Clearance w eGFR > 60 Random Glucose 86 D Calcium 8.4 L Total Bilirubin 0.3 D AST 11 L ALT 14 Alkaline Phosphatase 33 L D Total Protein 6.3 L Albumin 3.3 L Beta HCG, Quant 01325.9 Anti-A Titer Cancelled Blood Type Cancelled Antibody Screen Cancelled Spec Expiration Date Cancelled 05/04/17 03:13 Sodium Cancelled Potassium Cancelled Chloride Cancelled Carbon Dioxide Cancelled Anion Gap Cancelled BUN Cancelled Creatinine Cancelled Creat Clearance w eGFR Cancelled Random Glucose Cancelled Calcium Cancelled Total Bilirubin Cancelled AST Cancelled ALT Cancelled Alkaline Phosphatase Cancelled Total Protein Cancelled Albumin Cancelled Beta HCG, Quant Cancelled Anti-A Titer Blood Type Antibody Screen Spec Expiration Date 05/04/17 03:13 RBC 4.11 MCV 84.1 MCHC 32.4 RDW 14.7 MPV 8.3 Neutrophils % 56.4 Lymphocytes % 34.1 Monocytes % 6.6 Eosinophils % 2.5 Basophils % 0.4 - Medications Given in the ED: ED Medications Discontinued Medications Generic Name Dose Route Start Last Admin Trade Name Freq PRN Reason Stop Dose Admin Sodium Chloride 1,000 mls @ 1,000 mls/hr 05/04/17 02:05 05/04/17 04:00 Normal Saline - IV 05/04/17 03:04 1,000 mls/hr ASDIR STA Administration Sodium Chloride 1,000 mls @ 1,000 mls/hr 05/04/17 05:07 05/04/17 05:17 Normal Saline - IV 05/04/17 06:06 1,000 mls/hr ASDIR STA Administration Metoclopramide HCl 10 mg 05/04/17 02:06 05/04/17 04:01 Reglan Injection - IVPUSH 05/04/17 02:07 10 mg ONCE ONE Administration Metoclopramide HCl 10 mg 05/04/17 05:07 05/04/17 05:17 Reglan Injection - IVPUSH 05/04/17 05:08 10 mg ONCE ONE Administration <Nichelle Garcia - Last Filed: 05/04/17 09:56> - LABORATORY CBC & Chemistry Diagram: 05/04/17 03:13 05/04/17 03:50 <Jeanmarie Harper - Last Filed: 05/04/17 19:23> Medical Decision Making - Medical Decision Making 05/04/17 09:55 us with live IUP. labs unremarkable. dc home followup with pcp <Nichelle Garcia - Last Filed: 05/04/17 09:56> - Medical Decision Making 05/04/17 19:23 Dr. Harper: The scribe's documentation has been prepared under my direction and personally reviewed by me in its entirery. I confirm that the note above accurately reflects all work, treatment, procedures, and medical decision making performed by me. <Jeanmarie Harper - Last Filed: 05/04/17 19:23> *DC/Admit/Observation/Transfer - Attestations Scribe Attestion: 05/04/17 02:11 Documentation prepared by Tiera Huertas, acting as medical examiner for Jeanmarie Harper MD/DO. <Tiera Huertas - Last Filed: 05/04/17 02:10> - Discharge Dispostion Admit: No <Nichelle Garcia - Last Filed: 05/04/17 09:56> <Jeanmarie Harper - Last Filed: 05/04/17 19:23> Diagnosis at time of Disposition: - Discharge Dispostion Disposition: HOME Condition at time of disposition: Good - Referrals Referrals: Evangelist Calzada [Primary Care Provider] - - Patient Instructions Printed Discharge Instructions: Medications and Additional Instructions: follow up with your form grader. you can take tylenol 500 mg every 6 hours as needed for pain. return for bleeding or any concerns. take yoiur vitamins
[2017-05-04] MEDS ORDERED: METOCLOPRAMIDE HCL INJECTION 10 MG/2 ML VIAL IVPUSH ONE ×2 (02:06→05:07)
[2017-05-04 02:15] VITALS: BMI 37.8
[2017-05-04] MEDS ORDERED: METOCLOPRAMIDE HCL INJECTION 10 MG/2 ML VIAL ONE (02:57)
[2017-05-04 03:20] LABS: BASOPHIL 0.4 % (0-2.0); EOSINOPHIL 2.5 % (0-4.5); MCH 27.3 pg (25.7-33.7); MCHC 32.4 g/dl (32.0-36.0); MEAN CELL VOLUME 84.1 fl (80-96); MEAN PLT VOLUME 8.3 fl (7.5-11.1); NEUTROPHILS 56.4 % (42.8-82.8); PLATELET COUNT 280 K/MM3 (134-434); RDW 14.7 % (11.6-15.6); WHITE BLOOD COUNT 5.9 K/mm3 (4.0-10.0)
[2017-05-04 04:28] LABS: ALBUMIN 3.3 g/dl (3.4-5.0); ALK PHOS 33 U/L (45-117); ANION GAP 6 (8-16); BILIRUBIN,TOTAL 0.3 mg/dL (0.2-1.0); CALCIUM 8.4 mg/dL (8.5-10.1); CO2 25 mmol/L (21-32); CREATININE 0.8 mg/dL (0.55-1.02); GLUCOSE,RANDOM 86 mg/dL (74-106); SGOT/AST 11 U/L (15-37); SGPT/ALT 14 U/L (12-78); TOT PROT 6.3 g/dl (6.4-8.2)
[2017-05-04 06:28] VITALS: BP 110/70; PULSE 78; TEMP 98.8
[2017-05-04 10:30] LABS: URINE APPEARANCE CLOUDY; URINE BILIRUBIN NEGATIVE (NEGATIVE); URINE BLOOD NEGATIVE (NEGATIVE); URINE COLOR YELLOW; URINE GLUCOSE (UA) NEGATIVE (NEGATIVE); URINE KETONE NEGATIVE (NEGATIVE); URINE NITRITE NEGATIVE (NEGATIVE); URINE PROTEIN NEGATIVE (NEGATIVE); URINE UROBILINOGEN NEGATIVE E.U./dl (0.2-1.0)
[2017-05-04 10:40] LABS: URINE LEUK ESTERASE 2+ (NEGATIVE)
[2017-05-04 10:48] LABS: URINE BACTERIA RARE /hpf (NONE SEEN); URINE MUCUS FEW; URINE RBC 1 /hpf (0-3); URINE WBC 3 /hpf (3-5)
== END 2017-05-04 10:19 | disposition home or self-care (01) ==
LOC: JER 01:50
PROC: 3E0337Z Introduction of Electrolytic and Water Balance Substance into Peripheral Vein, Percutaneous Approach (ICD-10-PCS; principal; 2017-05-04)
PROC: 3E033GC Introduction of Other Therapeutic Substance into Peripheral Vein, Percutaneous Approach (ICD-10-PCS; 2017-05-04)
DX: O26.891 Other specified pregnancy related conditions, first trimester (principal); R10.84 Generalized abdominal pain; Z3A.01 Less than 8 weeks gestation of pregnancy
CPT/HCPCS: 36415; 76801-TC; 80053; 81003; 81015; 84702; 85025; 87086; 87186; 96361; 96374; 96376; 99284-25

== ENCOUNTER 2017-06-22 21:58 | Emergency (ER) | payer OTHER ==
[2017-06-22 22:07] VITALS: BP 116/52; PULSE 82; TEMP 97.8; BMI 36.0
--- NOTE | 2017-06-23 00:39 | PDOC ---
*Physical Exam - Vital Signs Last Vital Signs Temp Pulse Resp BP Pulse Ox 97.8 F 82 18 116/52 100 06/22/17 22:05 06/22/17 22:05 06/22/17 22:05 06/22/17 22:05 06/22/17 22:05 - Physical Exam Comments: 06/23/17 00:39 The patient was examined by MANN Hoff under my direct supervision. I personally evaluated the patient. I concur with the above findings and the plan of care.
[2017-06-23 00:47] LABS: BASOPHIL 0.6 % (0-2.0); EOSINOPHIL 2.2 % (0-4.5); MCH 28.3 pg (25.7-33.7); MCHC 33.3 g/dl (32.0-36.0); MEAN PLT VOLUME 8.2 fl (7.5-11.1); NEUTROPHILS 61.8 % (42.8-82.8); PLATELET COUNT 285 K/MM3 (134-434); RDW 14.5 % (11.6-15.6); WHITE BLOOD COUNT 5.9 K/mm3 (4.0-10.0)
--- NOTE | 2017-06-23 01:06 | PDOC ---
History of Present Illness - General Chief Complaint: Pain Stated Complaint: 3 MON PREG, ABD PAIN Time Seen by Provider: 06/22/17 23:39 - History of Present Illness Initial Comments: 06/23/17 01:05 CHIEF COMPLAINT: lower abd pain HISTORY OF PRESENT ILLNESS: 31 yo 16 week F presents to ED with intermittent lower abdominal pain x 1 week. Patient report the pain as a cramping, sharp pain that comes and goes. Patient denies any vaginal bleeding or abnormal discharge. She denies any nausea, vomiting, diarrhea. Patient states she goes to [address] [place] [address] for her OB services. PAST MEDICAL HISTORY: Denies past medical history FAMILY HISTORY: Denies SOCIAL HISTORY: Denies tobacco, alcohol, illicit drug use. SURGICAL HISTORY: Denies ALLERGIES: shellfish REVIEW OF SYSTEMS General/Constitutional: Denies fever or chills. Denies weakness, weight change. HEENT: Denies change in vision. Denies ear pain or discharge. Denies sore throat. Cardiovascular: Denies chest pain or shortness of breath. Respiratory: Denies cough, wheezing, or hemoptysis. Gastrointestinal: Lower abdominal pain. Denies constipation. Genitourinary: Denies dysuria, frequency, or change in urination. Musculoskeletal: Denies joint or muscle swelling or pain. Denies neck or back pain. Skin and breasts: Denies rash or easy bruising. Neurologic: Denies headache, vertigo, loss of consciousness, or loss of sensation. PHYSICAL EXAM General Appearance: Well-appearing, appropriately dressed. No apparent distress. HEENT: EOMI, PERRLA, normal ENT inspection, normal voice, TMs normal, pharynx normal. No conjunctival pallor. No photophobia, scleral icterus. Neck: Supple. Trachea midline. No tenderness, rigidity, carotid bruit, stridor , lymphadenopathy, or thyromegaly. Respiratory/Chest: Lungs CTAB. Cardiovascular: RRR. S1, S2. Vascular Pulses: Dorsalis-Pedis (R): 2+, Dorsalis-Pedis (L): 2+ Gastrointestinal/Abdominal: Normal bowel sounds. Abdomen soft, non-distended. No tenderness or rebound tenderness. No organomegaly, pulsatile mass, guarding , hernia, hepatomegaly, splenomegaly. Lymphatic: No adenopathy, tenderness. Musculoskeletal/Extremities: Normal inspection. FROM of all extremities, normal capillary refill. Pelvis Stable. No CVA tenderness. No tenderness to extremities, pedal edema, swelling, erythema or deformity. Integumentary: Appropriate color, dry, warm. 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 Fully oriented, alert. Appropriate mood/affect. Motor strength 5/5. No appreciable EOM palsy, facial droop or sensory deficit. 06/23/17 01:06 Past History - Past Medical History Allergies/Adverse Reactions: Allergies Allergy/AdvReac Type Severity Reaction Status Date / Time shellfish derived Allergy Mild Itching Verified 06/22/17 22:07 Home Medications: Ambulatory Orders Cephalexin [Keflex] 500 mg PO BID #20 capsule 06/23/17 Metronidazole [Flagyl -] 500 mg PO DAILY #14 tablet 06/23/17 Anemia: Yes Asthma: Yes Cancer: No Cardiac Disorders: No Diabetes: No HTN: No Seizures: No Thyroid Disease: No - Reproductive History (#): 3 Para: 3 Therapeutic (s) & number: No Spontaneous : 0 - Immunization History Immunization Up to Date: Yes - Psycho/Social/Smoking Cessation Hx Anxiety: No Suicidal Ideation: No Smoking History: Never smoked Have you smoked in the past 12 months: No Information on smoking cessation initiated: No Hx Alcohol Use: No Drug/Substance Use Hx: No Substance Use Type: None Hx Substance Use Treatment: No *Physical Exam - Vital Signs Last Vital Signs Temp Pulse Resp BP Pulse Ox 97.8 F 82 18 116/52 100 06/22/17 22:05 06/22/17 22:05 06/22/17 22:05 06/22/17 22:05 06/22/17 22:05 ED Treatment Course - LABORATORY CBC & Chemistry Diagram: 06/23/17 00:39 06/23/17 00:39 - ADDITIONAL ORDERS Additional order review: 06/23/17 00:39 RBC 4.19 MCV 85.0 MCHC 33.3 RDW 14.5 MPV 8.2 Neutrophils % 61.8 Lymphocytes % 28.4 Monocytes % 7.0 Eosinophils % 2.2 Basophils % 0.6 - RADIOLOGY Radiology Studies Ordered: Category Date Time Status LIMITED US [US] Stat Ultrasound 06/22/17 23:49 Taken Medical Decision Making - Medical Decision Making 06/23/17 01:08 31 yo 16 week F presents to ED with intermittent lower abdominal pain x 1 week. -CBC, CMP, beta hcg -TVUS *DC/Admit/Observation/Transfer Diagnosis at time of Disposition: Bacterial vaginosis - Discharge Dispostion Disposition: HOME Condition at time of disposition: Stable Admit: No - Prescriptions Prescriptions: Metronidazole [Flagyl -] 500 mg PO DAILY #14 tablet Cephalexin [Keflex] 500 mg PO BID #20 capsule - Referrals Referrals: Evangelist Calzada [Primary Care Provider] - - Patient Instructions Printed Discharge Instructions: DI for Bacterial Vaginosis, Managing Symptoms of , Common Discomforts and Bodily Changes During Additional Instructions: Please take your medication as prescribed. Please follow up with your instructor bridge this week. If you experience any vaginal bleeding, fever, headache , or increased abdominal pain, please return to the ER.
[2017-06-23 01:14] LABS: ALBUMIN 3.1 g/dl (3.4-5.0); ANION GAP 8 (8-16); BILIRUBIN,TOTAL 0.3 mg/dL (0.2-1.0); CALCIUM 9.4 mg/dL (8.5-10.1); CO2 25 mmol/L (21-32); CREATININE 0.7 mg/dL (0.55-1.02); GLUCOSE,RANDOM 90 mg/dL (74-106); SGOT/AST 7 U/L (15-37); SGPT/ALT 13 U/L (12-78); TOT PROT 6.5 g/dl (6.4-8.2)
[2017-06-23 01:29] LABS: ALK PHOS 37 U/L (45-117)
[2017-06-23 02:28] LABS: URINE APPEARANCE CLOUDY; URINE BILIRUBIN NEGATIVE (NEGATIVE); URINE BLOOD NEGATIVE (NEGATIVE); URINE COLOR AMBER; URINE GLUCOSE (UA) NEGATIVE (NEGATIVE); URINE KETONE TRACE (NEGATIVE); URINE NITRITE POSITIVE (NEGATIVE); URINE PROTEIN NEGATIVE (NEGATIVE); URINE UROBILINOGEN NEGATIVE mg/dL (0.2-1.0)
[2017-06-23 02:36] LABS: URINE LEUK ESTERASE 1+ (NEGATIVE)
[2017-06-23 02:38] LABS: URINE BACTERIA RARE /hpf (NONE SEEN); URINE MUCUS MANY; URINE RBC 2 /hpf (0-3); URINE WBC 10 /hpf (3-5)
== END 2017-06-23 03:01 | disposition home or self-care (01) ==
LOC: JER 21:58
DX: O26.892 Other specified pregnancy related conditions, second trimester (principal); Z3A.16 16 weeks gestation of pregnancy; N76.0 Acute vaginitis; J45.909 Unspecified asthma, uncomplicated; D64.9 Anemia, unspecified
CPT/HCPCS: 36415; 76815-TC; 80053; 81003; 81015; 84702; 85025; 87086; 87186; 99283-25

== ENCOUNTER 2017-12-12 08:19 | Inpatient (IN) | payer OTHER ==
[2017-12-12] MEDS ORDERED: BUTORPHANOL TARTRATE 1 MG/ML VIAL IVPB ONE (08:44)
[2017-12-12] MEDS ORDERED: PROMETHAZINE HCL 25 MG/1 ML VIAL IVPUSH ONE (08:44)
[2017-12-12] MEDS ORDERED: DEXTROSE 5%-LACTATED RINGERS 1,000 ML IV SCH (08:45)
[2017-12-12 09:31] VITALS: BMI 34.3
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
[2017-12-12 09:50] LABS: BASO % 0.3 % (0-2.0); EOS % 0.5 % (0-4.5); HEMATOCRIT 29.1 % (32.4-45.2); HEMOGLOBIN 9.1 GM/dL (10.7-15.3); LYMPH % 12.1 % (8-40); MCH 24.5 pg (25.7-33.7); MCHC 31.4 g/dl (32.0-36.0); MEAN CELL VOLUME 78.1 fl (80-96); MEAN PLT VOLUME 8.4 fl (7.5-11.1); MONO % 5.3 % (3.8-10.2); NEUT % 81.8 % (42.8-82.8); PLATELET COUNT 241 K/MM3 (134-434); RBC 3.72 M/mm3 (3.60-5.2); WHITE BLOOD COUNT 9.5 K/mm3 (4.0-10.0)
[2017-12-12] MEDS ORDERED: OXYTOCIN 20 UNITS in 0.9% NS 20 UNIT/1,000 ML INFUS.BAG IV ONE (09:50)
[2017-12-12 09:58] LABS: INR 0.92 (0.82-1.09); PROTHROMBIN TIME (PATIENT) 10.4 SEC (9.98-11.88)
[2017-12-12 10:01] LABS: ACTIVATED PTT 24.6 SECONDS (26.9-34.4)
[2017-12-12 10:08] LABS: ANION GAP 9 (8-16); BLOOD UREA NITROGEN 11 mg/dL (7-18); CALCIUM 7.9 mg/dL (8.5-10.1); CHLORIDE 106 mmol/L (98-107); CO2 21 mmol/L (21-32); CREATININE 0.7 mg/dL (0.55-1.02); GLUCOSE,RANDOM 220 mg/dL (74-106); POTASSIUM 4.1 mmol/L (3.5-5.1); SODIUM 136 mmol/L (136-145)
--- NOTE | 2017-12-12 10:09 | PN ---
Progress Note, Labor Vaginal Exam #1 Labor Exam Date: 12/12/17 Labor Exam Time: 08:55 Heart Rate (range): 150-90 Dilatation: 6 Effacement (%): 90 Amniotic Membrane Status: Ruptured (srom at 8.50 AM) Presentation: Vertex/Position Station: -2 Remarks: FHR cat -2 , scalp electrode applied UC 2-4 min s/p Iv stadol & phenrgan Vaginal Exam #2 Labor Exam Date: 12/12/17 Labor Exam Time: 09:30 Heart Rate (range): 140-100 Dilatation: 8 Effacement (%): 90 Amniotic Membrane Status: Ruptured Presentation: Vertex/Position Station: +1 Remarks: fhr cat-2 , varible decels uc 2-3 min Vaginal Exam #3 Labor Exam Date: 12/12/17 Labor Exam Time: 10:08 Heart Rate (range): 140-90 Dilatation: 10 Effacement (%): 100 Amniotic Membrane Status: Ruptured Presentation: Vertex/Position Station: +3 Remarks: fhr cat-2 uc q2 min
[2017-12-12] MEDS: OXYTOCIN 20 UNITS in 0.9% NS 20 UNIT/1,000 ML INFUS.BAG IV SCH ×2 (10:20→13:33)
[2017-12-12] MEDS ORDERED: BENZOCAINE 28 GM HEMORRHOIDAL OINTMENT TP PRN (10:35)
[2017-12-12] MEDS ORDERED: oxyCODONE HCL 5 MG TABLET PO PRN (10:35)
[2017-12-12] MEDS ORDERED: METHYLERGONOVINE MALEATE 0.2 MG/1 ML AMP IM PRN (10:35)
[2017-12-12] MEDS ORDERED: BISACODYL 10 MG SUPP.RECT RC PRN (10:35)
[2017-12-12] MEDS ORDERED: WITCH HAZEL 50% (TUCKS) 40 PAD/JAR PAD TP PRN (10:35)
[2017-12-12] MEDS ORDERED: BENZOCAINE 20% 57 GM BOTTLE TP PRN (10:35)
--- NOTE | 2017-12-12 10:43 | PN ---
Delivery - Delivery Vaginal Delivery: No Problems, Spontaneous (baby deilevered, cord around neckx1 , untangled before the delivery of shoulder immediate oral & nasal suction was done . perineum intact) Episiotomy/Laceration: None EBL (cc): 350 (cathetrized 50 ml bud, sent for urine c/s ) Delivery, Single - Stages of Labor Date 1st Stage Initiatied: 12/12/17 Time 1st Stage Initiated: 03:00 Date 2nd Stage Initiated: 12/12/17 Time 2nd Stage Initiated: 10:08 Date of Delivery: 12/12/17 Time of Delivery: 10:13 Date Placenta Delivered: 12/12/17 Time Placenta Delivered: 10:20 Placenta: Yes: Spontaneous, Uterine Exploration - Condition of Infant Infant Teacher/Supervisor Sunglasses Present: No Gender: Female Weight: 6 lb 9 oz Position: Left, OA Total Hours ROM (Hrs/Mins): 1hr 30min - 1 Minute Total Score: 9 5 Minutes Total Score: 9 - Feeding Plan Initial Plan: Elected not to breastfeed exclusively throughout hospitalization Remarks - Remarks Remarks: 32 yrs , 40.1 weeks , iup in active labor . GBS neg PNC at , [facility] h/o recurrent uti during & before pregn Stadol 2mg & Phenrgan 25 mg IV for labor analgesia was given Intrapartum course uneventful
[2017-12-12 11:00] LABS: ARTERIAL BLD GAS O2 SATURATION 28.4 % (90-98.9); ARTERIAL BLOOD GAS BASE EXCESS -6.9 meq/l (-2-2); ARTERIAL BLOOD GAS PCO2 69.4 mmHg (35-45); ARTERIAL BLOOD GAS pH 7.16 (7.35-7.45)
[2017-12-12 11:04] LABS: URINE APPEARANCE CLEAR; URINE BILIRUBIN NEGATIVE (NEGATIVE); URINE BLOOD 3+ (NEGATIVE); URINE COLOR YELLOW; URINE GLUCOSE (UA) 3+ (NEGATIVE); URINE KETONE TRACE (NEGATIVE); URINE LEUK ESTERASE TRACE (NEGATIVE); URINE NITRITE NEGATIVE (NEGATIVE)
[2017-12-12 11:05] LABS: URINE PROTEIN 1+ (NEGATIVE)
[2017-12-12 11:07] LABS: VENOUS PC02 52.1 mmHg (38-52); VENOUS PH 7.26 (7.32-7.42); VENOUS PO2 26.9 mmHg (28-48)
[2017-12-12 11:09] LABS: EPI CELLS RARE /HPF (FEW); URINE MUCUS MANY
[2017-12-12] MEDS ORDERED: IBUPROFEN 600 MG TABLET (FP) PO ONE (12:52)
[2017-12-12] MEDS ORDERED: ACETAMINOPHEN 325 MG TABLET (FP) ONE (12:52)
[2017-12-12] MEDS: IBUPROFEN 600 MG TABLET (FP) PO PRN ×3 (13:00→22:50)
[2017-12-12] MEDS: ACETAMINOPHEN 325 MG TABLET (FP) PO PRN ×3 (13:00→22:52)
[2017-12-12] MEDS: FERROUS SO4 325 MG TABLET (FP) PO SCH (17:13)
[2017-12-13 06:17] LABS: BASO % 0.5 % (0-2.0); EOS % 0.7 % (0-4.5); HEMATOCRIT 27.8 % (32.4-45.2); LYMPH % 17.4 % (8-40); MCH 25.4 pg (25.7-33.7); MCHC 32.4 g/dl (32.0-36.0); MEAN CELL VOLUME 78.3 fl (80-96); MEAN PLT VOLUME 8.7 fl (7.5-11.1); MONO % 7.8 % (3.8-10.2); NEUT % 73.6 % (42.8-82.8); PLATELET COUNT 254 K/MM3 (134-434); RBC 3.54 M/mm3 (3.60-5.2); RDW 17.7 % (11.6-15.6)
[2017-12-13] MEDS: FERROUS SO4 325 MG TABLET (FP) PO SCH ×2 (09:00→16:43)
[2017-12-13] MEDS: ACETAMINOPHEN 325 MG TABLET (FP) PO PRN ×3 (09:00→21:18)
[2017-12-13] MEDS: PRENATAL VITAMINS W/ FOLIC ACID TABLET (FP) PO SCH (09:01)
[2017-12-13] MEDS: IBUPROFEN 600 MG TABLET (FP) PO PRN ×3 (09:01→21:18)
--- NOTE | 2017-12-13 09:40 | PN ---
Post Progress Note - Subjective Subjective: 32 yo Para 5 status post normal vaginal delivery, seen and evaluated. Doing well. Post Day: 1 Type of Delivery: Vital Signs: Vital Signs Temperature 98.3 F 12/13/17 07:44 Pulse Rate 72 12/13/17 07:44 Respiratory Rate 18 12/13/17 07:44 Blood Pressure 115/74 12/13/17 07:44 O2 Sat by Pulse Oximetry (%) 99 12/12/17 13:48 Breast Exam: Yes: Soft Uterus: Yes: Fundus Firm Abdomen/GI: Yes: Abdomen soft, Tolerating PO Lochia: Yes: Rubra Lochia, amount: Moderate Extremities: Yes: Calves non-tender Perineum: Yes: Intact Activity: Ambulating - Labs Labs: CBC WBC 10.0 K/mm3 (4.0-10.0) 12/13/17 05:57 RBC 3.54 M/mm3 (3.60-5.2) L 12/13/17 05:57 Hgb 9.0 GM/dL (10.7-15.3) L 12/13/17 05:57 Hct 27.8 % (32.4-45.2) L 12/13/17 05:57 MCV 78.3 fl (80-96) L 12/13/17 05:57 MCH 25.4 pg (25.7-33.7) L 12/13/17 05:57 MCHC 32.4 g/dl (32.0-36.0) 12/13/17 05:57 RDW 17.7 % (11.6-15.6) H 12/13/17 05:57 Plt Count 254 K/MM3 (134-434) 12/13/17 05:57 MPV 8.7 fl (7.5-11.1) 12/13/17 05:57 Neutrophils % 73.6 % (42.8-82.8) 12/13/17 05:57 Lymphocytes % 17.4 % (8-40) D 12/13/17 05:57 Monocytes % 7.8 % (3.8-10.2) 12/13/17 05:57 Eosinophils % 0.7 % (0-4.5) 12/13/17 05:57 Basophils % 0.5 % (0-2.0) 12/13/17 05:57 Problem List - Problems (1) Status post normal vaginal delivery Code(s): [id number] - Assessment/Plan Status post vaginal delivery Stable Continue routine care
[2017-12-13] MEDS ORDERED: FLU VACC QS2017-18 36MOS UP/PF 60 MCG/0.5 ML SYRINGE IM ONE (12:00)
[2017-12-13] MEDS ORDERED: DIPHTH,PERTUSS(ACELL),TET 0.5 ML DISP.SYRIN IM ONE (12:00)
[2017-12-13] MEDS: AMOX TR/POT CLAV 875MG/125MG TABLETS (FP) PO SCH (16:43)
[2017-12-13] MEDS ORDERED: SENNOSIDES/DOCUSATE COMBO (SENNA PLUS) TABLET (UD) PO PRN (22:00)
--- NOTE | 2017-12-14 07:01 | DS ---
Physical Exam-[employer]BI[employer] HOME INST[employer]ER Vital Signs: Vital Signs Temperature 98.3 F 12/13/17 21:27 Pulse Rate 92 H 12/13/17 21:27 Respiratory Rate 18 12/13/17 21:27 Blood Pressure 109/59 12/13/17 21:27 O2 Sat by Pulse Oximetry (%) 99 12/12/17 13:48 Constitutional: Yes: Well Nourished, Pallor, Other (no complains. voiding without difficulty) Eyes: Yes: WNL HENT: Yes: WNL Neck: Yes: WNL Cardiovascular: Yes: WNL Respiratory: Yes: WNL Gastrointestinal: Yes: WNL ...Rectal Exam: Yes: WNL Renal/: Yes: WNL, Other (pt has recurrent UTI during pregnacy, treated with keflex, ampicillin .macrobid. Persistent Ecoli in urine is Noted. susceptible to all meds). No: CVA Tenderness - Left, CVA Tenderness - Right ....Post : Yes: Uterus firm, Uterus non-tender, Moderate lochia rubra Breast(s): Yes: WNL (not BF) Musculoskeletal: Yes: WNL Extremities: Yes: WNL. No: Calf Tenderness Edema: LLE: 1+, RLE: 1+ Integumentary: Yes: Tattoos Neurological: Yes: WNL ...Motor Strength: WNL Psychiatric: Yes: WNL Labs: CBC, BMP 12/13/17 05:57 12/12/17 09:08 Microbiology 12/12/17 10:30 Urine - Urine - Catheterized Urine Culture - Preliminary Lactose Fermenting Neg Bacilli Delivery - Delivery Vaginal Delivery: No Problems, Spontaneous (baby deilevered, cord around neckx1 , untangled before the delivery of shoulder immediate oral & nasal suction was done . perineum intact) Type of Anesthesia: None Episiotomy/Laceration: None EBL (cc): 350 (cathetrized 50 ml bud, sent for urine c/s ) Delivery, Single - Stages of Labor Date 1st Stage Initiatied: 12/12/17 Time 1st Stage Initiated: 03:00 Date 2nd Stage Initiated: 12/12/17 Time 2nd Stage Initiated: 10:08 Date of Delivery: 12/12/17 Time of Delivery: 10:13 Time Placenta Delivered: 10:20 Placenta: Yes: Spontaneous, Uterine Exploration - Condition of Scrap Collector/Service Station Helper Present: No Infant Gender: Female Weight: 6 lb 9 oz Position: Left, OA Total Hours ROM (Hrs/Mins): 1hr 30min - 1 Minute Total Score: 9 5 Minutes Total Score: 9 - [facility] Feeding Plan Initial Plan: Elected not to breastfeed exclusively throughout hospitalization Remarks - Remarks Remarks: 32 yrs , 40.1 weeks , iup in active labor . GBS neg PNC at [address] [place] [address] h/o recurrent uti during & before pregn Stadol 2mg & Phenrgan 25 mg IV for labor analgesia was given Intrapartum course uneventful pt counselled for recurrent UTI , & Anemia Dicharge today Discharge Summary Reason For Visit: LABOR ADMISSION Current Active Problems 40 weeks gestation of (Acute) Anemia (Acute) Anemia affecting in third trimester (Acute) Labor established (Acute) Recurrent UTI (urinary tract infection) (Acute) Status post normal vaginal delivery (Acute) Condition: Stable - Instructions Diet, Activity, Other Instructions: Post Instructions DIET: Continue good diet high in protein, calcium, and iron rich foods. Drink at least eight (8) glasses of water daily in addition to other fluids. ct Regular diet Drink Plenty Po Fluids MEDICATIONS: Continue vitamins and iron as previously directed. Motrin and Tylenol may be taken for minor discomfort. ACTIVITY: Mild to moderate exercise may be started in two (2) weeks. Take frequent rest periods. Resume normal activity after six (6) week check up. WOUND CARE OF OPERATIVE SITE: Continue use of perineal bottle until vaginal discharge stops. Keep area clean. Shower daily. Keep abdominal wound dry. Report any drainage or redness to physician. Tub baths, tampons and douches are not permitted for 6 weeks. _ct Breast feeding & or Bottle feeding BREAST CARE: (For those that are not breast feeding): If engorgement occurs: Wear tight fitting bra. Take Tylenol or Motrin for pain. Apply cold packs (ice in bags to each breast ) FAMILY PLANNING: There are many control alternatives to pursue and they should be discussed at your first office visit. You may resume sexual activity after your six (6) week check up. (Remember, breast feeding is not a contraceptive) NEXT PHYSICIAN APPOINTMENT: Be certain to call for a six (6) week appointment, unless otherwise directed. Call Clinic or got to Emergency Dept if you have any of the following: Heavy vaginal bleeding Painful urination Leg pain Unusual odor noted to vaginal bleeding High fever Red streaking noted on breast Referrals: Deborah Wood MD [Staff Physician] - Disposition: HOME - Home Medications Comprehensive Discharge Medication List: Ambulatory Orders Acetaminophen [Tylenol .Regular Strength -] 650 mg PO Q3H PRN tablet 12/13/17 Amox-Tr/K Cl [Augmentin 875-125mg Tablet -] 1 tab PO BIDWM #20 tablet 12/13/17 Ferrous Sulfate [Feosol] 325 mg PO BIDWM #60 tab 12/13/17 Ibuprofen [Motrin -] 200 mg PO Q4H PRN tablet 12/13/17 Vitamins (Sjr) - 1 tab PO DAILY #30 tablet 12/13/17
[2017-12-14] MEDS: FERROUS SO4 325 MG TABLET (FP) PO SCH (08:23)
[2017-12-14] MEDS: AMOX TR/POT CLAV 875MG/125MG TABLETS (FP) PO SCH (08:23)
[2017-12-14] MEDS: ACETAMINOPHEN 325 MG TABLET (FP) PO PRN (08:27)
[2017-12-14] MEDS: IBUPROFEN 600 MG TABLET (FP) PO PRN (08:28)
[2017-12-14] MEDS: PRENATAL VITAMINS W/ FOLIC ACID TABLET (FP) PO SCH (11:03)
[2017-12-14 12:09] VITALS: BP 100/55; PULSE 79; TEMP 97.9
== END 2017-12-14 14:10 | disposition home or self-care (01) | DRG 560 ==
LOC: JLDR 08:19 → J3W 14:10
PROVIDERS: ADMIT Obstetrics & Gynecology; ATTEND Obstetrics & Gynecology
PROC: 10E0XZZ Delivery of Products of Conception, External Approach (ICD-10-PCS; principal; 2017-12-12)
DX: O99.02 Anemia complicating childbirth (principal); Z3A.40 40 weeks gestation of pregnancy; Z37.0 Single live birth
CPT/HCPCS: 36415; 36600; 59409; 80048; 81003; 81015; 82803; 82962; 85025; 85610; 85730; 86593; 86850; 86900; 86901; 87086; 87186; 90686; 90715

== ENCOUNTER 2018-04-22 18:42 | Emergency (ER) | payer OTHER ==
[2018-04-22 18:52] VITALS: BP 130/78; PULSE 99; TEMP 99.1; BMI 36.3
[2018-04-22 20:04] LABS: BASO % 0.5 % (0-2.0); EOS % 3.8 % (0-4.5); HEMATOCRIT 33.1 % (32.4-45.2); HEMOGLOBIN 10.9 GM/dL (10.7-15.3); MCH 27.4 pg (25.7-33.7); MONO % 6.2 % (3.8-10.2); NEUT % 62.5 % (42.8-82.8); PLATELET COUNT 307 K/MM3 (134-434); RBC 3.99 M/mm3 (3.60-5.2); RDW 15.3 % (11.6-15.6); WHITE BLOOD COUNT 5.5 K/mm3 (4.0-10.0)
[2018-04-22 20:06] LABS: URINE APPEARANCE SLCLOUDY; URINE BILIRUBIN NEGATIVE (<2.0 mg/dL); URINE BLOOD NEGATIVE (NEGATIVE); URINE COLOR YELLOW; URINE GLUCOSE (UA) NEGATIVE (NEGATIVE); URINE KETONE NEGATIVE (NEGATIVE); URINE LEUK ESTERASE NEGATIVE (NEGATIVE); URINE NITRITE POSITIVE (NEGATIVE); URINE PROTEIN NEGATIVE (NEGATIVE)
[2018-04-22 20:30] LABS: ALBUMIN 3.1 g/dl (3.4-5.0); ANION GAP 9 (8-16); BLOOD UREA NITROGEN 9 mg/dL (7-18); CALCIUM 8.8 mg/dL (8.5-10.1); CHLORIDE 107 mmol/L (98-107); CO2 24 mmol/L (21-32); GLUCOSE,RANDOM 100 mg/dL (74-106); POTASSIUM 3.7 mmol/L (3.5-5.1); SODIUM 140 mmol/L (136-145)
--- NOTE | 2018-04-22 20:47 | PDOC ---
*Physical Exam - Vital Signs Last Vital Signs Temp Pulse Resp BP Pulse Ox 99.1 F 99 H 20 130/78 99 04/22/18 18:48 04/22/18 18:48 04/22/18 18:48 04/22/18 18:48 04/22/18 18:48 - Physical Exam Comments: 04/22/18 20:46 The patient was examined by [BETZAIDA Hay] under my direct supervision. I personally evaluated the patient. I concur with the above findings and the plan of care. ED Treatment Course - LABORATORY CBC & Chemistry Diagram: 04/22/18 20:00 04/22/18 20:00 - ADDITIONAL ORDERS Additional order review: 04/22/18 20:00 RBC 3.99 MCV 83.0 MCHC 33.0 RDW 15.3 D MPV 8.0 Neutrophils % 62.5 Lymphocytes % 27.0 D Monocytes % 6.2 Eosinophils % 3.8 D Basophils % 0.5
[2018-04-22 20:48] LABS: ALK PHOS 48 U/L (45-117); BILIRUBIN,TOTAL 0.4 mg/dL (0.2-1.0); CREATININE 0.8 mg/dL (0.55-1.02); SGOT/AST 14 U/L (15-37); SGPT/ALT 13 U/L (12-78); TOT PROT 6.5 g/dl (6.4-8.2)
[2018-04-22 20:54] LABS: EPI CELLS RARE /HPF (FEW); URINE BACTERIA MANY /hpf (NONE SEEN); URINE MUCUS MANY
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
== END 2018-04-22 22:20 | disposition home or self-care (01) ==
LOC: JER 18:42
DX: O20.0 Threatened abortion (principal); Z3A.12 12 weeks gestation of pregnancy; J45.909 Unspecified asthma, uncomplicated; D64.9 Anemia, unspecified; Z91.013 Allergy to seafood
CPT/HCPCS: 36415; 76801-TC; 80053; 81003; 81015; 84702; 85025; 86850; 86900; 86901; 99281-25

== ENCOUNTER 2018-06-20 11:42 | Emergency (ER) | payer OTHER ==
[2018-06-20 11:47] VITALS: BMI 36.3
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
[2018-06-20] MEDS ORDERED: ACETAMINOPHEN 500 MG TABLET (FP) PO ONE (12:45)
--- NOTE | 2018-06-20 12:51 | PDOC ---
Attending Attestation - Resident Resident Name: David Hopkins - ED Attending Attestation I have performed the following: I have examined & evaluated the patient, The case was reviewed & discussed with the resident, I agree w/resident's findings & plan - HPI HPI: 06/20/18 12:46 32y/o F at about 21 weeks gestation p/w 2d lower abd cramping, spotting without large clots/tissue today. bodyaches but no f/c. has h/o UTI during her previous which were empirically treated as she was asx. associated v/d, no travel. - Physicial Exam PE: 06/20/18 12:48 Fever, tachycardia, blood pressure stable Overall well-appearing in no acute distress Heart is regular tachycardia, lungs are clear Abdomen is soft and nondistended, tender with guarding in the suprapubic region , no rebound. No CVA tenderness. No edema or cellulitis - Medical Decision Making 06/20/18 12:50 32-year-old female second trimester presents with fever and lower abdominal pain with cramping and vaginal spotting. Possible UTI given her history, pelvic infection seen less likely. Sepsis protocol initiated Tylenol for fever and pain L&D consulted, will need monitoring Heart Score/ECG Review #1 ECG reviewed & interpreted by me at: 12:20 General ECG Interpretation: Sinus Rhythm, Normal Rate (99 slight tachy), Normal Intervals (qtc 428), No acute ischemic changes
[2018-06-20] MEDS ORDERED: SODIUM CHLORIDE 0.9% 500 ML INFUS.BAG IV ONE (12:55)
[2018-06-20] MEDS ORDERED: ONDANSETRON 4 MG/2 ML VIAL IVPUSH ONE (12:55)
[2018-06-20 12:57] LABS: BASO % 0.3 % (0-2.0); EOS % 0.3 % (0-4.5); HEMATOCRIT 29.9 % (32.4-45.2); HEMOGLOBIN 9.9 GM/dL (10.7-15.3); LYMPH % 8.6 % (8-40); MCH 27.4 pg (25.7-33.7); MCHC 33.3 g/dl (32.0-36.0); MEAN CELL VOLUME 82.5 fl (80-96); MEAN PLT VOLUME 9.1 fl (7.5-11.1); MONO % 4.6 % (3.8-10.2); NEUT % 86.2 % (42.8-82.8); PLATELET COUNT 240 K/MM3 (134-434); RBC 3.62 M/mm3 (3.60-5.2); RDW 15.3 % (11.6-15.6)
[2018-06-20] MEDS ORDERED: ONDANSETRON 4 MG/2 ML VIAL ONE (13:09)
[2018-06-20] MEDS ORDERED: ACETAMINOPHEN 325 MG TABLET (FP) ONE (13:09)
[2018-06-20 13:17] LABS: INR 1.01 (0.83-1.09); PROTHROMBIN TIME (PATIENT) 11.4 SEC (9.7-13.0)
[2018-06-20 13:20] LABS: ACTIVATED PTT 20.4 SECONDS (25.2-36.5)
[2018-06-20 13:29] LABS: ANION GAP 9 (8-16); BILIRUBIN,TOTAL 0.8 mg/dL (0.2-1.0); BLOOD UREA NITROGEN 8 mg/dL (7-18); CALCIUM 8.8 mg/dL (8.5-10.1); CHLORIDE 104 mmol/L (98-107); CO2 23 mmol/L (21-32); CREATININE 0.7 mg/dL (0.55-1.02); GLUCOSE,RANDOM 79 mg/dL (74-106); POTASSIUM 3.9 mmol/L (3.5-5.1); SGOT/AST 13 U/L (15-37); SGPT/ALT 12 U/L (12-78); SODIUM 136 mmol/L (136-145); TOT PROT 6.5 g/dl (6.4-8.2)
[2018-06-20 13:30] LABS: ALK PHOS 44 U/L (45-117)
[2018-06-20 13:40] LABS: VENOUS PC02 38.7 mmHg (38-52); VENOUS PH 7.4 (7.32-7.42); VENOUS PO2 22.9 mmHg (28-48)
[2018-06-20] MEDS ORDERED: CEFTRIAXONE 1,000 MG in DEXTROSE 5%-WATER - 50 ML IVPB ONE (14:02)
[2018-06-20] MEDS ORDERED: CEFTRIAXONE 1 GM/50 ML BAG ONE (14:57)
[2018-06-20 16:26] LABS: URINE APPEARANCE CLOUDY; URINE BILIRUBIN NEGATIVE (<2.0 mg/dL); URINE COLOR DKYELLOW; URINE GLUCOSE (UA) NEGATIVE (NEGATIVE); URINE KETONE 1+ (NEGATIVE); URINE NITRITE NEGATIVE (NEGATIVE); URINE PROTEIN NEGATIVE (NEGATIVE); URINE UROBILINOGEN NEGATIVE mg/dL (0.2-1.0)
[2018-06-20 16:51] LABS: URINE LEUK ESTERASE 1+ (NEGATIVE)
[2018-06-20 17:13] LABS: EPI CELLS RARE /HPF (FEW); URINE BACTERIA FEW /hpf (NONE SEEN); URINE MUCUS RARE
[2018-06-20 17:50] VITALS: BP 104/58; PULSE 85; TEMP 98.9
--- NOTE | 2018-06-21 10:37 | EKG ---
Test Reason : Blood Pressure : / mmHG Vent. Rate : 099 BPM Atrial Rate : 099 BPM P-R Int : 144 ms QRS Dur : 066 ms QT Int : 334 ms P-R-T Axes : 043 042 029 degrees QTc Int : 428 ms NORMAL SINUS RHYTHM NORMAL ECG WHEN COMPARED WITH ECG OF 08-JAN-2017 08:37, NO SIGNIFICANT CHANGE WAS FOUND Confirmed by URIAH CORREA MD ([id number]) on 06/21/2018 10:37:18 AM Referred By: Confirmed By:URIAH CORREA MD
== END 2018-06-20 19:50 | disposition home or self-care (01) ==
LOC: JER 11:42
PROC: 3E03329 Introduction of Other Anti-infective into Peripheral Vein, Percutaneous Approach (ICD-10-PCS; principal; 2018-06-20)
PROC: 3E033GC Introduction of Other Therapeutic Substance into Peripheral Vein, Percutaneous Approach (ICD-10-PCS; 2018-06-20)
PROC: 3E0337Z Introduction of Electrolytic and Water Balance Substance into Peripheral Vein, Percutaneous Approach (ICD-10-PCS; 2018-06-20)
DX: O20.0 Threatened abortion (principal); Z3A.20 20 weeks gestation of pregnancy; D64.9 Anemia, unspecified; J45.909 Unspecified asthma, uncomplicated; Z91.013 Allergy to seafood
CPT/HCPCS: 36415; 76801-TC; 76817-TC; 80053; 81003; 81015; 82803; 83605; 85025; 85610; 85730; 87040; 87086; 87186; 93005; 93010; 99284-25

== ENCOUNTER 2018-11-06 08:52 | Inpatient (IN) | payer OTHER ==
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
[2018-11-06] MEDS ORDERED: OXYTOCIN 30 UNITS in 0.9% NS 30 UNIT/500 ML INFUS.BAG IVPB SCH (11:00)
[2018-11-06] MEDS: DEXTROSE 5%-LACTATED RINGERS 1,000 ML IV SCH (11:00)
[2018-11-06 12:09] VITALS: BMI 36.3
[2018-11-06] MEDS ORDERED: OXYTOCIN 30 UNITS in 0.9% NS 30 UNIT/500 ML INFUS.BAG IVPB ONE (12:10)
[2018-11-06 12:44] LABS: BASO % 0.3 % (0-2.0); EOS % 0.9 % (0-4.5); HEMATOCRIT 24.8 % (32.4-45.2); HEMOGLOBIN 7.6 GM/dL (10.7-15.3); LYMPH % 24.4 % (8-40); MCH 21.9 pg (25.7-33.7); MCHC 30.5 g/dl (32.0-36.0); MEAN CELL VOLUME 71.9 fl (80-96); MEAN PLT VOLUME 8.3 fl (7.5-11.1); MONO % 8.2 % (3.8-10.2); NEUT % 66.2 % (42.8-82.8); PLATELET COUNT 227 K/MM3 (134-434); RBC 3.44 M/mm3 (3.60-5.2); RDW 17.7 % (11.6-15.6); WHITE BLOOD COUNT 5.1 K/mm3 (4.0-10.0)
[2018-11-06 13:17] LABS: INR 0.95 (0.83-1.09); PROTHROMBIN TIME (PATIENT) 11.2 SEC (9.7-13.0)
[2018-11-06 13:19] LABS: ACTIVATED PTT 28.9 SECONDS (25.2-36.5)
[2018-11-06 13:37] LABS: ANION GAP 8 MMOL/L (8-16); BLOOD UREA NITROGEN 7 mg/dL (7-18); CALCIUM 8.5 mg/dL (8.5-10.1); CHLORIDE 108 mmol/L (98-107); CO2 24 mmol/L (21-32); CREATININE 0.6 mg/dL (0.55-1.3); GLUCOSE,RANDOM 132 mg/dL (74-106); POTASSIUM 3.8 mmol/L (3.5-5.1); SODIUM 140 mmol/L (136-145)
[2018-11-06 14:11] LABS: COCAINE, UR NEGATIVE ng/ml (CUTOFF=300); METHADONE, UR NEGATIVE ng/ml (CUTOFF=300); OPIATES, URI NEGATIVE ng/ml (CUTOFF=300); PHENCYCLIDINE,URINE NEGATIVE ng/ml (CUTOFF=25); URINE AMPHETAMINES NEGATIVE ng/ml (CUTOFF=500); URINE BARBITURATES NEGATIVE ng/ml (CUTOFF=200); URINE BENZODIAZEPINES NEGATIVE ng/ml (CUTOFF=200)
[2018-11-06 14:13] LABS: ANISOCYTOSIS 2+; MACROCYTOSIS 0; PLATELET ESTIMATE NORMAL; TEAR DROP CELLS 1+
[2018-11-06] MEDS ORDERED: PROMETHAZINE HCL 25 MG/1 ML VIAL ONE (16:21)
[2018-11-06] MEDS ORDERED: BUTORPHANOL TARTRATE 1 MG/ML VIAL ONE ×2 (16:21)
[2018-11-06] MEDS ORDERED: BUTORPHANOL TARTRATE 1 MG/ML VIAL IVPB PRN (16:23)
[2018-11-06] MEDS ORDERED: PROMETHAZINE HCL 25 MG/1 ML VIAL IVPB PRN (16:24)
[2018-11-06] MEDS ORDERED: OXYTOCIN 20 UNITS in 0.9% NS 20 UNIT/1,000 ML INFUS.BAG IV ONE (18:28)
[2018-11-06] MEDS ORDERED: LIDOCAINE HCL 1% PRESERVATIVE FREE - 30ML VIAL ONE (18:28)
[2018-11-06] MEDS ORDERED: METHYLERGONOVINE MALEATE 0.2 MG/1 ML AMP IM PRN (19:23)
[2018-11-06] MEDS ORDERED: BENZOCAINE 28 GM HEMORRHOIDAL OINTMENT TP PRN (19:23)
[2018-11-06] MEDS ORDERED: BISACODYL 10 MG SUPP.RECT RC PRN (19:23)
[2018-11-06] MEDS ORDERED: BENZOCAINE 20% 57 GM BOTTLE TP PRN (19:23)
[2018-11-06] MEDS ORDERED: WITCH HAZEL 50% (TUCKS) 40 PAD/JAR PAD TP PRN (19:23)
--- NOTE | 2018-11-06 19:27 | PN ---
Delivery - Delivery Vaginal Delivery: Spontaneous Type of Anesthesia: Local Episiotomy/Laceration: None EBL (cc): 300 Delivery, Single - Feeding Plan Initial Plan: Elected not to breastfeed exclusively throughout hospitalization Remarks - Remarks Remarks: Normal spontaneous vaginal delivery of a live over intact perineum. Nose / Oropharynx suctioned @ perineum. Nuchal cord x 1 cut and clamped. Baby handed to nurse Placenta expelled spontaneously intact. Mother in stable condition
[2018-11-06] MEDS: OXYTOCIN 20 UNITS in 0.9% NS 20 UNIT/1,000 ML INFUS.BAG IV SCH (19:30)
[2018-11-06] MEDS: ACETAMINOPHEN 325 MG TABLET (FP) PO PRN (20:20)
[2018-11-06] MEDS ORDERED: IBUPROFEN 600 MG TABLET (FP) PO ONE (22:20)
[2018-11-06] MEDS: IBUPROFEN 600 MG TABLET (FP) PO PRN (22:20)
[2018-11-06] MEDS ORDERED: ACETAMINOPHEN 325 MG TABLET (FP) ONE (22:21)
[2018-11-07] MEDS: ACETAMINOPHEN 325 MG TABLET (FP) PO PRN ×4 (02:14→23:03)
[2018-11-07] MEDS: IBUPROFEN 600 MG TABLET (FP) PO PRN ×4 (02:14→23:03)
[2018-11-07] MEDS: FERROUS SO4 325 MG TABLET (FP) PO SCH ×2 (08:00→17:26)
[2018-11-07 08:54] LABS: BASO % 0.5 % (0-2.0); EOS % 0.5 % (0-4.5); HEMATOCRIT 25.9 % (32.4-45.2); HEMOGLOBIN 8.4 GM/dL (10.7-15.3); MCH 23.1 pg (25.7-33.7); MCHC 32.4 g/dl (32.0-36.0); MEAN CELL VOLUME 71.3 fl (80-96); MEAN PLT VOLUME 8.6 fl (7.5-11.1); MONO % 7.8 % (3.8-10.2); NEUT % 75.2 % (42.8-82.8); PLATELET COUNT 249 K/MM3 (134-434); RBC 3.64 M/mm3 (3.60-5.2); WHITE BLOOD COUNT 8.7 K/mm3 (4.0-10.0)
[2018-11-07] MEDS: PRENATAL VITAMINS W/ FOLIC ACID TABLET (FP) PO SCH (09:11)
--- NOTE | 2018-11-07 09:40 | PN ---
Post Progress Note - Subjective Subjective: 32 yo Para 5 status post vaginal delivery, seen and evaluated. She c/o swollen perineum and difficulty walking. Post Day: 1 Type of Delivery: Vital Signs: Vital Signs Temperature 98.3 F 11/07/18 05:50 Pulse Rate 97 H 11/07/18 05:50 Respiratory Rate 18 11/07/18 05:50 Blood Pressure 104/61 11/07/18 05:50 O2 Sat by Pulse Oximetry (%) 99 11/06/18 19:30 Breast Exam: Yes: Soft Uterus: Yes: Fundus Firm Abdomen/GI: Yes: Abdomen soft, Tolerating PO Lochia: Yes: Rubra Lochia, amount: Moderate Extremities: Yes: Calves non-tender Perineum: Yes: Intact Activity: Ambulating - Labs Labs: CBC WBC 8.7 K/mm3 (4.0-10.0) 11/07/18 07:25 RBC 3.64 M/mm3 (3.60-5.2) 11/07/18 07:25 Hgb 8.4 GM/dL (10.7-15.3) L 11/07/18 07:25 Hct 25.9 % (32.4-45.2) L 11/07/18 07:25 MCV 71.3 fl (80-96) L 11/07/18 07:25 MCH 23.1 pg (25.7-33.7) L 11/07/18 07:25 MCHC 32.4 g/dl (32.0-36.0) 11/07/18 07:25 RDW 17.0 % (11.6-15.6) H 11/07/18 07:25 Plt Count 249 K/MM3 (134-434) 11/07/18 07:25 MPV 8.6 fl (7.5-11.1) 11/07/18 07:25 Absolute Neuts (auto) 6.6 K/mm3 (1.5-8.0) 11/07/18 07:25 Neutrophils % 75.2 % (42.8-82.8) 11/07/18 07:25 Lymphocytes % 16.0 % (8-40) D 11/07/18 07:25 Monocytes % 7.8 % (3.8-10.2) 12/25/18 07:25 Eosinophils % 0.5 % (0-4.5) 11/07/18 07:25 Basophils % 0.5 % (0-2.0) 11/07/18 07:25 Nucleated RBC % 0 % (0-0) 11/07/18 07:25 Hypochromia 2+ 11/06/18 11:55 Platelet Estimate Normal 11/06/18 11:55 Polychromasia 1+ 11/06/18 11:55 Poikilocytosis 1+ 11/06/18 11:55 Anisocytosis 2+ 11/06/18 11:55 Microcytosis 2+ 11/06/18 11:55 Macrocytosis 0 11/06/18 11:55 Tear Drop Cells 1+ 11/06/18 11:55 Assessment/Plan Status post vaginal delivery Swollen perineum Apply ice pack Analgesia as needed Continue care
[2018-11-07] MEDS ORDERED: SENNOSIDES/DOCUSATE COMBO (SENNA PLUS) TABLET (UD) PO PRN (22:00)
[2018-11-08] MEDS: DEXTROSE 5%-LACTATED RINGERS 1,000 ML IV SCH (02:47)
[2018-11-08] MEDS: OXYTOCIN 20 UNITS in 0.9% NS 20 UNIT/1,000 ML INFUS.BAG IV SCH (02:47)
[2018-11-08] MEDS: FERROUS SO4 325 MG TABLET (FP) PO SCH (07:31)
[2018-11-08] MEDS: ACETAMINOPHEN 325 MG TABLET (FP) PO PRN ×2 (07:31→11:53)
[2018-11-08] MEDS: IBUPROFEN 600 MG TABLET (FP) PO PRN ×2 (07:31→11:53)
[2018-11-08 08:06] VITALS: BP 126/69; PULSE 84; TEMP 97.4
--- NOTE | 2018-11-08 08:43 | PN ---
Post Progress Note - Subjective Subjective: c/o cramps scale 7/10 no c/o dizziness Post Day: 2 Type of Delivery: Vital Signs: Vital Signs Temperature 97.4 F L 11/08/18 08:03 Pulse Rate 84 11/08/18 08:03 Respiratory Rate 20 11/08/18 08:03 Blood Pressure 126/69 11/08/18 08:03 O2 Sat by Pulse Oximetry (%) 99 11/06/18 19:30 Breast Exam: Yes: Soft, Other (not BF ). No: Engorged Uterus: Yes: Fundus Firm, Fundus below umbilicus, Non-tender Lochia, amount: Moderate Extremities: Yes: Calves non-tender Perineum: Yes: Intact Activity: Ambulating - Labs Labs: CBC WBC 8.7 K/mm3 (4.0-10.0) 11/07/18 07:25 RBC 3.64 M/mm3 (3.60-5.2) 11/07/18 07:25 Hgb 8.4 GM/dL (10.7-15.3) L 11/07/18 07:25 Hct 25.9 % (32.4-45.2) L 11/07/18 07:25 MCV 71.3 fl (80-96) L 11/07/18 07:25 MCH 23.1 pg (25.7-33.7) L 11/07/18 07:25 MCHC 32.4 g/dl (32.0-36.0) 11/07/18 07:25 RDW 17.0 % (11.6-15.6) H 11/07/18 07:25 Plt Count 249 K/MM3 (134-434) 11/07/18 07:25 MPV 8.6 fl (7.5-11.1) 11/07/18 07:25 Absolute Neuts (auto) 6.6 K/mm3 (1.5-8.0) 11/07/18 07:25 Neutrophils % 75.2 % (42.8-82.8) 11/07/18 07:25 Lymphocytes % 16.0 % (8-40) D 11/07/18 07:25 Monocytes % 7.8 % (3.8-10.2) 11/07/18 07:25 Eosinophils % 0.5 % (0-4.5) 11/07/18 07:25 Basophils % 0.5 % (0-2.0) 11/07/18 07:25 Nucleated RBC % 0 % (0-0) 11/07/18 07:25 Hypochromia 2+ 11/06/18 11:55 Platelet Estimate Normal 11/06/18 11:55 Polychromasia 1+ 11/06/18 11:55 Poikilocytosis 1+ 11/06/18 11:55 Anisocytosis 2+ 11/06/18 11:55 Microcytosis 2+ 11/06/18 11:55 Macrocytosis 0 11/06/18 11:55 Tear Drop Cells 1+ 11/06/18 11:55 Problem List - Problems (1) Normal spontaneous vaginal delivery Code(s): O80 - ENCOUNTER FOR FULL-TERM UNCOMPLICATED DELIVERY (2) Anemia Code(s): D64.9 - ANEMIA, UNSPECIFIED Qualifiers: Anemia type: iron deficiency Iron deficiency anemia type: inadequate dietary iron intake Qualified Code(s): D50.8 - Other iron deficiency anemias (3) Encounter for care and examination after delivery Code(s): Z39.2 - ENCOUNTER FOR ROUTINE FOLLOW-UP Assessment/Plan anemia , pt stable hemodynamically counselled for anemia discharge today
[2018-11-08] MEDS: PRENATAL VITAMINS W/ FOLIC ACID TABLET (FP) PO SCH (09:03)
== END 2018-11-08 16:20 | disposition home or self-care (01) | DRG 560 ==
LOC: JDEL 08:52 → JLDR 09:50 → J3W 23:15
PROVIDERS: ADMIT Obstetrics & Gynecology; ATTEND Obstetrics & Gynecology
PROC: 10E0XZZ Delivery of Products of Conception, External Approach (ICD-10-PCS; principal; 2018-11-06)
DX: O48.0 Post-term pregnancy (principal); Z3A.40 40 weeks gestation of pregnancy; O99.013 Anemia complicating pregnancy, third trimester; D50.9 Iron deficiency anemia, unspecified; Z37.0 Single live birth
CPT/HCPCS: 36415; 59409; 72170-TC-FY; 80048; 80307; 85025; 85610; 85730; 86593; 86850; 86900; 86901

== ENCOUNTER 2020-09-24 22:25 | Emergency (ER) | payer OTHER ==
[2020-09-24 22:36] VITALS: BP 117/66; PULSE 91; TEMP 98.6; BMI 37.2
[2020-09-25] MEDS ORDERED: ACETAMINOPHEN 500 MG TABLET (FP) PO ONE (00:11)
[2020-09-25] MEDS ORDERED: ACETAMINOPHEN 325 MG TABLET (FP) ONE (01:12)
[2020-09-25 01:16] LABS: BASO % 0.7 % (0-2.0); EOS % 3.5 % (0-4.5); HEMATOCRIT 31.2 % (32.4-45.2); HEMOGLOBIN 9.9 GM/dL (10.7-15.3); MCH 25.7 pg (25.7-33.7); MCHC 31.7 g/dl (32.0-36.0); MEAN CELL VOLUME 81.1 fl (80-96); MEAN PLT VOLUME 7.8 fl (7.5-11.1); MONO % 6.5 % (3.8-10.2); NEUT % 54.3 % (42.8-82.8); PLATELET COUNT 304 K/MM3 (134-434); RBC 3.85 M/mm3 (3.60-5.2); RDW 15.7 % (11.6-15.6); WHITE BLOOD COUNT 5.7 K/mm3 (4.0-10.0)
[2020-09-25 01:21] LABS: EPI CELLS >36 /uL (0-25.1); HYALINE CASTS 13 /uL (0-3.1); URINE APPEARANCE CLOUDY; URINE BACTERIA 940 /uL (0-1359); URINE BILIRUBIN NEGATIVE (NEGATIVE); URINE COLOR YELLOW; URINE GLUCOSE (UA) NEGATIVE (NEGATIVE); URINE KETONE TRACE (NEGATIVE); URINE LEUK ESTERASE 2+ (NEGATIVE); URINE NITRITE NEGATIVE (NEGATIVE); URINE PROTEIN TRACE (NEGATIVE); URINE RBC 19 /uL (0-23.9); URINE WBC 399 /uL (0-25.8)
[2020-09-25 01:36] LABS: CHLORIDE 110 mmol/L (98-107); POTASSIUM 3.7 mmol/L (3.5-5.1); SODIUM 140 mmol/L (136-145)
[2020-09-25 01:39] LABS: ALBUMIN 3.8 g/dl (3.4-5.0); ANION GAP 5 MMOL/L (8-16); BLOOD UREA NITROGEN 9.9 mg/dL (7-18); CALCIUM 9.4 mg/dL (8.5-10.1); CO2 25 mmol/L (21-32); GLUCOSE,RANDOM 90 mg/dL (74-106)
[2020-09-25 01:42] LABS: CREATININE 0.8 mg/dL (0.55-1.3); SGOT/AST 11 U/L (15-37); SGPT/ALT 15 U/L (13-61)
[2020-09-25 01:44] LABS: BILIRUBIN,TOTAL 0.4 mg/dL (0.2-1); TOT PROT 6.9 g/dl (6.4-8.2)
[2020-09-25 01:45] LABS: ALK PHOS 42 U/L (45-117)
== END 2020-09-25 02:04 | disposition home or self-care (01) ==
LOC: JER 22:25
DX: N39.0 Urinary tract infection, site not specified (principal); O20.0 Threatened abortion
CPT/HCPCS: 36415; 76817-TC; 80053; 81003; 84702; 85025; 86850; 86900; 86901; 87086; 87186; 99284-25

== ENCOUNTER 2020-09-29 15:44 | Emergency (ER) | payer OTHER ==
[2020-09-29 16:05] VITALS: TEMP 98.6; BMI 44.2
[2020-09-29 18:09] LABS: BASO % 0.8 % (0-2.0); EOS % 4.3 % (0-4.5); HEMATOCRIT 32.3 % (32.4-45.2); HEMOGLOBIN 10.4 GM/dL (10.7-15.3); LYMPH % 24.7 % (8-40); MCH 26.2 pg (25.7-33.7); MCHC 32.1 g/dl (32.0-36.0); MEAN CELL VOLUME 81.5 fl (80-96); MEAN PLT VOLUME 8.1 fl (7.5-11.1); MONO % 6.3 % (3.8-10.2); NEUT % 63.9 % (42.8-82.8); PLATELET COUNT 294 K/MM3 (134-434); RBC 3.97 M/mm3 (3.60-5.2); RDW 15.6 % (11.6-15.6); WHITE BLOOD COUNT 5.7 K/mm3 (4.0-10.0)
[2020-09-29] MEDS ORDERED: SODIUM CHLORIDE 0.9% 500 ML INFUS.BAG IV ONE (18:11)
[2020-09-29 18:28] LABS: POTASSIUM 3.8 mmol/L (3.5-5.1)
[2020-09-29 18:29] LABS: CALCIUM 8.3 mg/dL (8.5-10.1)
[2020-09-29 18:30] LABS: BLOOD UREA NITROGEN 9.3 mg/dL (7-18)
[2020-09-29 18:34] LABS: CREATININE 0.8 mg/dL (0.55-1.3)
[2020-09-29 19:48] LABS: EPI CELLS >36 /uL (0-25.1); HYALINE CASTS 10 /uL (0-3.1); PH,URINE 6.5 (5.0-8.0); URINE APPEARANCE CLOUDY; URINE BACTERIA 4989 /uL (0-1359); URINE BILIRUBIN NEGATIVE (NEGATIVE); URINE COLOR YELLOW; URINE GLUCOSE (UA) NEGATIVE (NEGATIVE); URINE KETONE 1+ (NEGATIVE); URINE LEUK ESTERASE 2+ (NEGATIVE); URINE NITRITE NEGATIVE (NEGATIVE); URINE PROTEIN NEGATIVE (NEGATIVE); URINE RBC 79 /uL (0-23.9); URINE WBC 159 /uL (0-25.8)
[2020-09-29 21:15] VITALS: BP 120/70; PULSE 74
== END 2020-09-29 21:15 | disposition home or self-care (01) ==
LOC: JER 15:44
DX: N93.9 Abnormal uterine and vaginal bleeding, unspecified (principal); Z3A.01 Less than 8 weeks gestation of pregnancy
CPT/HCPCS: 36415; 76817-TC; 80048; 81003; 84702; 84703; 85025; 86850; 86900; 86901; 87086; 87186; 99284-25

== ENCOUNTER 2021-05-01 00:11 | Emergency (ER) | payer OTHER ==
[2021-05-01 00:26] VITALS: BMI 34.4
[2021-05-01] MEDS ORDERED: ACETAMINOPHEN 325 MG TABLET (FP) PO ONE (01:39)
[2021-05-01] MEDS ORDERED: ACETAMINOPHEN 325 MG TABLET (FP) ONE (01:40)
[2021-05-01] MEDS ORDERED: CYCLOBENZAPRINE HCL 10 MG TABLET (FP) PO ONE (02:45)
[2021-05-01] MEDS ORDERED: CYCLOBENZAPRINE HCL 10 MG TABLET (FP) ONE (03:18)
[2021-05-01] MEDS ORDERED: morphine CARPU-JECT 2 MG/1 ML DISP.SYRIN IVPUSH ONE (07:26)
[2021-05-01] MEDS ORDERED: SODIUM CHLORIDE 1,000 ML IV STA (07:26)
[2021-05-01] MEDS ORDERED: morphine SULFATE 4 MG/ML VIAL ONE (07:39)
[2021-05-01] MEDS ORDERED: morphine CARPU-JECT 4 MG/1 ML DISP.SYRIN IVPUSH ONE (07:53)
[2021-05-01 08:01] LABS: BASO % 0.5 % (0-2.0); EOS % 1.3 % (0-4.5); HEMATOCRIT 24.6 % (32.4-45.2); HEMOGLOBIN 7.8 GM/dL (10.7-15.3); MCH 22.1 pg (25.7-33.7); MCHC 31.8 g/dl (32.0-36.0); MEAN CELL VOLUME 69.6 fl (80-96); MEAN PLT VOLUME 8.1 fl (7.5-11.1); NEUT % 69.2 % (42.8-82.8); PLATELET COUNT 246 10^3/uL (134-434); RBC 3.53 M/mm3 (3.60-5.2); RDW 17.4 % (11.6-15.6); WHITE BLOOD COUNT 6.5 K/mm3 (4.0-10.0)
[2021-05-01 08:06] LABS: INR 1.02 (0.83-1.09); PROTHROMBIN TIME (PATIENT) 12.3 SEC (9.7-13.0)
[2021-05-01 08:08] LABS: ACTIVATED PTT 25.8 SECONDS (25.2-36.5)
[2021-05-01 08:22] LABS: CALCIUM 8.5 mg/dL (8.5-10.1)
[2021-05-01 08:23] LABS: ALBUMIN 2.4 g/dl (3.4-5.0); BLOOD UREA NITROGEN 7.3 mg/dL (7-18)
[2021-05-01 08:26] LABS: CREATININE 0.6 mg/dL (0.55-1.3)
[2021-05-01 08:27] LABS: BILIRUBIN,TOTAL 0.6 mg/dL (0.2-1)
[2021-05-01 08:28] LABS: TOT PROT 5.6 g/dl (6.4-8.2)
[2021-05-01] MEDS ORDERED: SODIUM CHLORIDE 0.9% 1000 ML INFUS.BAG IV ONE (10:56)
[2021-05-01 11:29] VITALS: TEMP 97.6
[2021-05-01] MEDS ORDERED: ACETAMINOPHEN 1000 MG/100 ML VIAL (NON FORMULARY) IVPB ONE (13:09)
[2021-05-01] MEDS ORDERED: ACETAMINOPHEN INJECTION 100 ML IVPB ONE (14:00)
[2021-05-01] MEDS ORDERED: CYANOCOBALAMIN (VITAMIN B-12) 1000 MCG/1 ML VIAL IM ONE (18:23)
[2021-05-01] MEDS ORDERED: IRON SUCROSE INJECTION 200 MG in SODIUM CHLORIDE 90 ML IVPB ONE (18:30)
[2021-05-01 18:37] VITALS: BP 116/85; PULSE 85
[2021-05-01 21:42] LABS: COCAINE, UR NEGATIVE (NEGATIVE); METHADONE, UR NEGATIVE (NEGATIVE); URINE AMPHETAMINES NEGATIVE (NEGATIVE); URINE BARBITURATES NEGATIVE (NEGATIVE)
[2021-05-01 21:43] LABS: PHENCYCLIDINE,URINE NEGATIVE (NEGATIVE)
[2021-05-01 21:48] LABS: OPIATES, URI POSITIVE (NEGATIVE); URINE BENZODIAZEPINES NEGATIVE (NEGATIVE)
[2021-05-07 10:13] LABS: Hgb F 0; Hgb S 0
== END 2021-05-01 21:30 | disposition home or self-care (01) ==
LOC: JER 00:11
PROC: 3E0333Z Introduction of Anti-inflammatory into Peripheral Vein, Percutaneous Approach (ICD-10-PCS; principal; 2021-05-01)
PROC: 3E023GC Introduction of Other Therapeutic Substance into Muscle, Percutaneous Approach (ICD-10-PCS; 2021-05-01)
PROC: 3E033GC Introduction of Other Therapeutic Substance into Peripheral Vein, Percutaneous Approach (ICD-10-PCS; 2021-05-01)
PROC: 3E0337Z Introduction of Electrolytic and Water Balance Substance into Peripheral Vein, Percutaneous Approach (ICD-10-PCS; 2021-05-01)
DX: O26.713 Subluxation of symphysis (pubis) in pregnancy, third trimester (principal); Z3A.37 37 weeks gestation of pregnancy
CPT/HCPCS: 36415; 72195-TC; 74181-TC; 80053; 80307; 82607; 82728; 82747; 83021; 83540; 83550; 83615; 85014; 85025; 85610; 85660; 85730; 86850; 86880; 86900; 86901; 99285-25; C9803; J0131; J1756; U0003; U0005

== ENCOUNTER 2021-05-11 16:03 | Day surgery (SDC) | payer OTHER ==
[~2021-05-11 16:03] MED LIST changes: -CEFTRIAXONE 50 ML ONE; -CEPHALEXIN MONOHYDRATE 250 MG CAPSULE (FP) ONE; +CYANOCOBALAMIN (VITAMIN B-12) 1000 MCG/1 ML VIAL IM ONE; +IRON SUCROSE INJECTION 200 MG in SODIUM CHLORIDE 100 ML IVPB ONE; -ONDANSETRON 4 MG/2 ML VIAL IVPUSH ONE; -ONDANSETRON 4 MG/2 ML VIAL ONE; -SODIUM CHLORIDE 1,000 ML IV STA
[2021-05-11] MEDS ORDERED: CYANOCOBALAMIN (VITAMIN B-12) 1000 MCG/1 ML VIAL IM ONE (16:22)
[2021-05-11] MEDS ORDERED: IRON SUCROSE INJECTION 200 MG in SODIUM CHLORIDE 90 ML IVPB ONE (16:22)
[2021-05-11 16:39] VITALS: TEMP 98.9
[2021-05-11 18:28] VITALS: BP 129/84; PULSE 92
== END 2021-05-11 18:45 | disposition home or self-care (01) ==
LOC: JINFUSION 16:03 → J7W 16:14 → JINFUSION 18:45
PROVIDERS: ATTEND Internal Medicine Hematology & Oncology
PROC: 3E033GC Introduction of Other Therapeutic Substance into Peripheral Vein, Percutaneous Approach (ICD-10-PCS; principal; 2021-05-11)
DX: D50.9 Iron deficiency anemia, unspecified (principal)
CPT/HCPCS: 96365; J1756

== ENCOUNTER 2021-05-15 13:28 | Day surgery (SDC) | payer OTHER ==
[~2021-05-15 13:28] MED LIST changes: -IRON SUCROSE INJECTION 200 MG in SODIUM CHLORIDE 100 ML IVPB ONE
[2021-05-15] MEDS ORDERED: CYANOCOBALAMIN (VITAMIN B-12) 1000 MCG/1 ML VIAL IM ONE (13:30)
[2021-05-15] MEDS ORDERED: IRON SUCROSE INJECTION 200 MG in SODIUM CHLORIDE 90 ML IVPB ONE (13:30)
[2021-05-15 14:25] VITALS: BP 133/75; PULSE 91; TEMP 98.4
== END 2021-05-15 16:00 | disposition home or self-care (01) ==
LOC: J7W 13:28 → JINFUSION 13:28
PROVIDERS: ATTEND Internal Medicine Hematology & Oncology
PROC: 3E033GC Introduction of Other Therapeutic Substance into Peripheral Vein, Percutaneous Approach (ICD-10-PCS; principal; 2021-05-15)
DX: D50.9 Iron deficiency anemia, unspecified (principal)
CPT/HCPCS: 96365; J1756

== ENCOUNTER 2021-05-24 15:30 | Inpatient (IN) | payer OTHER ==
[2021-05-24] MEDS: ELECTROLYTE-148 SOLN 1,000 ML IV SCH ×2 (16:30→22:30)
[2021-05-24 16:53] VITALS: BMI 37.8
[2021-05-24 16:54] LABS: BASO % 0.6 % (0-2.0); EOS % 1.1 % (0-4.5); HEMATOCRIT 28.5 % (32.4-45.2); HEMOGLOBIN 9.1 GM/dL (10.7-15.3); LYMPH % 22.2 % (8-40); MCH 23.7 pg (25.7-33.7); MCHC 31.9 g/dl (32.0-36.0); MEAN CELL VOLUME 74.4 fl (80-96); MEAN PLT VOLUME 8.5 fl (7.5-11.1); MONO % 8.6 % (3.8-10.2); NEUT % 67.5 % (42.8-82.8); PLATELET COUNT 195 10^3/uL (134-434); RBC 3.83 M/mm3 (3.60-5.2); WHITE BLOOD COUNT 4.3 K/mm3 (4.0-10.0)
[2021-05-24 17:05] LABS: INR 0.9 (0.83-1.09); PROTHROMBIN TIME (PATIENT) 11.1 SEC (9.7-13.0)
[2021-05-24 17:08] LABS: ACTIVATED PTT 28.9 SECONDS (25.2-36.5)
[2021-05-24 17:14] LABS: CALCIUM 8.2 mg/dL (8.5-10.1)
[2021-05-24 17:15] LABS: BLOOD UREA NITROGEN 5.6 mg/dL (7-18)
[2021-05-24 17:18] LABS: CREATININE 0.6 mg/dL (0.55-1.3)
[2021-05-24 17:30] LABS: ANISOCYTOSIS 3+; MACROCYTOSIS 0; OVALOCYTE 1+; PLATELET ESTIMATE NORMAL; TEAR DROP CELLS 1+
[2021-05-24] MEDS: MISOPROSTOL 25 MCG TABLET (COMPOUNDED BY PHARMACY) PO SCH ×2 (21:00→23:53)
[2021-05-24 21:01] LABS: COCAINE, UR NEGATIVE (NEGATIVE); URINE AMPHETAMINES NEGATIVE (NEGATIVE); URINE BARBITURATES NEGATIVE (NEGATIVE)
[2021-05-24 21:02] LABS: METHADONE, UR NEGATIVE (NEGATIVE); OPIATES, URI NEGATIVE (NEGATIVE)
[2021-05-24 21:11] LABS: URINE BENZODIAZEPINES NEGATIVE (NEGATIVE)
[2021-05-24 21:18] LABS: PHENCYCLIDINE,URINE NEGATIVE (NEGATIVE)
[2021-05-24] MEDS ORDERED: LIDOCAINE HCL 1% PRESERVATIVE FREE - 30ML VIAL ONE (21:49)
[2021-05-24] MEDS ORDERED: OXYTOCIN 20 UNITS in 0.9% NS 20 UNIT/1,000 ML INFUS.BAG IV ONE (21:49)
[2021-05-24] MEDS ORDERED: PCA PUMP NR ONE (21:52)
[2021-05-24] MEDS ORDERED: FENTANYL/BUPIVACAINE/NS/PF - PCEA - 50 ML DISP.SYRIN EP ONE (22:17)
[2021-05-24] MEDS ORDERED: NALOXONE HCL 0.4 MG/ML VIAL IVPUSH PRN (22:35)
[2021-05-24] MEDS ORDERED: FENTANYL/BUPIVACAINE/NS/PF - PCEA - 50 ML DISP.SYRIN EP SCH (22:45)
[2021-05-25] MEDS ORDERED: FENTANYL/BUPIVACAINE/NS/PF - PCEA - 50 ML DISP.SYRIN EP ONE (01:53)
[2021-05-25] MEDS ORDERED: MISOPROSTOL 100 MCG TABLET ONE (02:38)
[2021-05-25] MEDS ORDERED: WITCH HAZEL 50% (TUCKS) 40 PAD/JAR PAD TP PRN (02:48)
[2021-05-25] MEDS ORDERED: MISOPROSTOL 200 MCG TABLET PV ONE (02:48)
[2021-05-25] MEDS ORDERED: METHYLERGONOVINE MALEATE 0.2 MG/1 ML AMP IM PRN (02:48)
[2021-05-25] MEDS ORDERED: BISACODYL 10 MG SUPP.RECT RC PRN (02:48)
[2021-05-25] MEDS ORDERED: BENZOCAINE 28 GM HEMORRHOIDAL OINTMENT TP PRN (02:48)
[2021-05-25] MEDS ORDERED: BENZOCAINE 20% 57 GM BOTTLE TP PRN (02:48)
[2021-05-25] MEDS ORDERED: OXYTOCIN 20 UNITS in 0.9% NS 20 UNIT/1,000 ML INFUS.BAG IV SCH (03:00)
[2021-05-25] MEDS: ACETAMINOPHEN 325 MG TABLET (FP) PO PRN ×3 (04:44→20:35)
[2021-05-25] MEDS: IBUPROFEN 600 MG TABLET (FP) PO PRN ×3 (04:44→20:35)
[2021-05-25] MEDS: PRENATAL VITAMINS W/ FOLIC ACID TABLET (FP) PO SCH (09:15)
[2021-05-25 11:27] LABS: POC NITRAZINE POS
[2021-05-26] MEDS: IBUPROFEN 600 MG TABLET (FP) PO PRN ×2 (08:27→19:45)
[2021-05-26] MEDS: ACETAMINOPHEN 325 MG TABLET (FP) PO PRN ×2 (08:27→19:45)
[2021-05-26 09:18] LABS: BASO % 0.7 % (0-2.0); EOS % 2.4 % (0-4.5); HEMATOCRIT 31.5 % (32.4-45.2); HEMOGLOBIN 9.7 GM/dL (10.7-15.3); LYMPH % 27.2 % (8-40); MCH 23.6 pg (25.7-33.7); MCHC 30.9 g/dl (32.0-36.0); MEAN CELL VOLUME 76.5 fl (80-96); MEAN PLT VOLUME 9.3 fl (7.5-11.1); MONO % 8.1 % (3.8-10.2); NEUT % 61.6 % (42.8-82.8); PLATELET COUNT 207 10^3/uL (134-434); RBC 4.12 M/mm3 (3.60-5.2); WHITE BLOOD COUNT 5.1 K/mm3 (4.0-10.0)
[2021-05-26] MEDS: PRENATAL VITAMINS W/ FOLIC ACID TABLET (FP) PO SCH (11:15)
[2021-05-26] MEDS ORDERED: SENNOSIDES/DOCUSATE COMBO (SENNA PLUS) TABLET (UD) PO PRN (22:00)
[2021-05-27 08:37] VITALS: BP 127/70; PULSE 68; TEMP 98.4
[2021-05-27] MEDS: PRENATAL VITAMINS W/ FOLIC ACID TABLET (FP) PO SCH (09:38)
[2021-05-27] MEDS: ACETAMINOPHEN 325 MG TABLET (FP) PO PRN (09:41)
[2021-05-27] MEDS: IBUPROFEN 600 MG TABLET (FP) PO PRN (09:41)
== END 2021-05-27 12:40 | disposition home or self-care (01) | DRG 560 ==
LOC: JLDR 15:30 → J3W 05-25 04:26
PROVIDERS: ADMIT Obstetrics & Gynecology; ATTEND Obstetrics & Gynecology
PROC: 10E0XZZ Delivery of Products of Conception, External Approach (ICD-10-PCS; principal; 2021-05-25)
DX: O80 Encounter for full-term uncomplicated delivery (principal); Z3A.39 39 weeks gestation of pregnancy; Z37.0 Single live birth
CPT/HCPCS: 36415; 59025; 59409; 80048; 80307; 83986-QW; 85025; 85610; 85730; 86780; 86850; 86900; 86901; C9803; U0003; U0005

== ENCOUNTER 2023-04-23 03:20 | Emergency (ER) | payer OTHER ==
[2023-04-23 03:26] VITALS: RESP 18; BMI 36.8
[2023-04-23 04:52] LABS: EPI CELLS 33 /uL (0-25.1); HYALINE CASTS 2 /uL (0-3.1); PH,URINE 5.5 (5.0-8.0); URINE APPEARANCE CLEAR; URINE BACTERIA 2700 /uL (0-1359); URINE BILIRUBIN NEGATIVE (NEGATIVE); URINE COLOR YELLOW; URINE GLUCOSE (UA) NEGATIVE (NEGATIVE); URINE KETONE TRACE (NEGATIVE); URINE LEUK ESTERASE 1+ (NEGATIVE); URINE NITRITE NEGATIVE (NEGATIVE); URINE PROTEIN TRACE (NEGATIVE); URINE WBC 154 /uL (0-25.8)
[2023-04-23 04:53] LABS: BASO % 1.1 % (0-2.0); EOS % 4.3 % (0-4.5); HEMATOCRIT 29.8 % (32.4-45.2); HEMOGLOBIN 9.5 GM/dL (10.7-15.3); LYMPH % 34.4 % (8-40); MCH 23.6 pg (25.7-33.7); MCHC 31.7 g/dl (32.0-36.0); MEAN CELL VOLUME 74.4 fl (80-96); MEAN PLT VOLUME 8.1 fl (7.5-11.1); MONO % 8.8 % (3.8-10.2); NEUT % 51.4 % (42.8-82.8); PLATELET COUNT 365 10^3/uL (134-434); RBC 4.01 M/mm3 (3.60-5.2); RDW 17.6 % (11.6-15.6); WHITE BLOOD COUNT 4.4 K/mm3 (4.0-10.0)
[2023-04-23 05:07] LABS: BLOOD UREA NITROGEN 11.5 mg/dL (7-18); CALCIUM 8.6 mg/dL (8.5-10.1); POTASSIUM 4.1 mmol/L (3.5-5.1)
[2023-04-23 05:09] LABS: ALBUMIN 3.4 g/dl (3.4-5.0)
[2023-04-23 05:10] LABS: CREATININE 0.8 mg/dL (0.55-1.3)
[2023-04-23 05:13] LABS: BILIRUBIN,TOTAL 0.1 mg/dL (0.2-1); TOT PROT 6.6 g/dl (6.4-8.2)
[2023-04-23] MEDS ORDERED: CEFTRIAXONE 1,000 MG in DEXTROSE 5%-WATER - 50 ML IVPB ONE (05:31)
[2023-04-23] MEDS ORDERED: CEFTRIAXONE 1 GM/50 ML BAG ONE (05:52)
[2023-04-23 07:06] VITALS: BP 133/68; PULSE 85; TEMP 98.2
[2023-04-23 09:10] LABS: URINE RBC 30.3 /uL (0-23.9)
== END 2023-04-23 09:39 | disposition home or self-care (01) ==
LOC: JER 03:20
DX: O20.9 Hemorrhage in early pregnancy, unspecified (principal); O26.891 Other specified pregnancy related conditions, first trimester; R10.30 Lower abdominal pain, unspecified; M54.9 Dorsalgia, unspecified; Z3A.08 8 weeks gestation of pregnancy
CPT/HCPCS: 36415; 76830-TC; 80053; 81003; 84702; 85025; 86850; 86900; 86901; 87086; 87186; 99284-25

== ENCOUNTER 2024-06-28 08:43 | Emergency (ER) | payer OTHER ==
[2024-06-28 09:11] VITALS: BP 129/71; PULSE 89; RESP 16; TEMP 99; BMI 37.8
[2024-06-28 09:26] LABS: HCG,QUALITATIVE URINE Positive
[2024-06-28 09:41] LABS: EPITHELIAL CELLS >50 /hpf
[2024-06-28] MEDS ORDERED: ACETAMINOPHEN 325 MG TABLET (FP) ONE (09:42)
[2024-06-28] MEDS: ACETAMINOPHEN 325 MG TABLET (FP) PO ONE (09:48)
[2024-06-28] MEDS ORDERED: CEPHALEXIN MONOHYDRATE 500 MG CAPSULE (UD) ONE (11:21)
[2024-06-28] MEDS: CEPHALEXIN MONOHYDRATE 500 MG CAPSULE (UD) PO ONE (11:26)
[2024-06-28 12:29] LABS: HIV INTERPRETATION NEGATIVE (NEGATIVE)
== END 2024-06-28 11:38 | disposition home or self-care (01) ==
LOC: FER 08:43
DX: O09.521 Supervision of elderly multigravida, first trimester (principal); O23.41 Unspecified infection of urinary tract in pregnancy, first trimester; O26.891 Other specified pregnancy related conditions, first trimester; R10.30 Lower abdominal pain, unspecified; Z3A.01 Less than 8 weeks gestation of pregnancy
CPT/HCPCS: 36415; 76801-TC; 81003; 81015; 84703; 86803; 87086; 87186; 87389; 99284-25